=== PATIENT | male | born 1960 | race Caucasian/White ===

== ENCOUNTER → 2021-02-05 08:34 | Outpatient (CLI) | payer OTHER, SELFPAY ==
[2021-02-05 13:46] LABS: Influenza Control Positive
[2021-02-05 20:05] LABS: SARS-CoV-2 RNA PCR Positive
== END ==
PROVIDERS: PCP Internal Medicine; Visit Provider Internal Medicine
DX: R68.89 Other general symptoms and signs (principal); Z20.822 Contact with and (suspected) exposure to COVID-19
CPT/HCPCS: 87804; C9803; U0003; U0005

== ENCOUNTER 2021-02-08 07:31 | Outpatient (RCR) | payer OTHER, SELFPAY ==
[2021-02-08 10:57] VITALS: BP 118/64; PULSE 66; RESP 24; TEMP 36.3; O2SAT 86
--- NOTE | 2021-02-08 11:13 | PC.NURSE ---
Patient arrived with O2 sats at 82% on room air, and after sitting for 10 minutes we are at 88%. Call has been made to Dr Guillermo.. Patient is being transported to the ER by private car. Treatment is being canceled due to the oxygen saturation levels staying in the 80's. Report called to the ER at [facility], and patient is aware of the situation and voices understanding. JUNIOR Juarez stated he will be triaged and placed in a waiting pattern, and they will get to him when they can.
== END 2021-02-08 17:00 ==
LOC: AMCINF 07:31
PROVIDERS: PCP Internal Medicine; Visit Provider Internal Medicine Hematology & Oncology
DX: U07.1 COVID-19 (principal); I10 Essential (primary) hypertension
CPT/HCPCS: 99212; G0463

== ENCOUNTER 2021-02-08 11:38 | Inpatient (IN) | payer OTHER, SELFPAY ==
[2021-02-08] VITALS (12 sets, daily range): BP systolic 97–122; BP diastolic 62–76; PULSE 60–96; RESP 12–26; TEMP 36.2–37.2; O2SAT 78–97; BMI 34.7
--- NOTE | ~2021-02-08 | XR_ITS ---
XR chest 1V portable 02/08/2021 12:12 Indication: Covid positive. Procedure: AP portable chest Comparison: 02/03/2017 Findings: There is diffuse patchy bilateral airspace disease, compatible with pneumonia. No pleural e ffusion. Heart size normal. No pneumothorax. Impression: 1: Diffuse patchy bilateral airspace disease, compatible with pneumonia. Reviewed, dictated and finalized at location B. ECTION MANAGER Impression: 1: Diffuse patchy bilateral airspace disease, compatible with pneumonia.
--- NOTE | ~2021-02-08 | CT_ITS ---
EXAMINATION: CTA chest PE protocol EXAM DATE: 02/08/2021 13:32 INDICATION: COVID, eval for PE. Shortness of breath. TECHNIQUE: Spiral CTA of the chest (pulmonary arteries) was performed with 100 cc Omnipaque 350 intr avenous contrast injection. Images were acquired during the pulmonary arterial phase. Coronal maxi mum intensity projection 3D-reconstructions were created by the technologist on dedicated workstation . Axial, coronal and sagittal reformatted images were reviewed. The dose-length product (DLP) for t his examination was 672.33 mGy-cm. The exposure was tailored according to patient size (auto mA exp osure control), and iterative reconstruction (ASIR) was used as additional dose reduction technique. There is no prior study for comparison. FINDINGS: There are no pulmonary emboli in the 1st through 3rd order (central and interlobar) pulmon andrés arteries. Some loss of attenuation in the segmental pulmonary arteries due to respiratory motion , but no intraluminal filling defects suspected. Mildly dilated ascending aorta at 4.6 cm. No thoraci c aortic dissection. Moderate amount of bilateral peripheral groundglass airspace disease with some volume loss and regions of confluence. Appearance is consistent with subacute COVID pneumonia. There are no pleural or pericardial effusions. Tracheobronchial tree is patent. There is no mediastina l, hilar or axillary lymphadenopathy. There is no pneumothorax. Heart normal in size. There is moderate coronary arterial calcification, arterial sclerosis. There is hepatic steatosis. There is thoracic spondylosis without osteoblastic or osteolytic lesions identified. IMPRESSION: 1. Moderate amount of airspace disease consistent with subacute COVID pneumonia. 2. Mildly aneurysmal ascending aorta. 3. Hepatic steatosis. 4. No pulmonary emboli. Reviewed, dictated and finalized at location A. MENTATION IMPROVEMENT SPECIALIST IMPRESSION: 1. Moderate amount of airspace disease consistent with subacute COVID pneumoni a. 2. Mildly aneurysmal ascending aorta. 3. Hepatic steatosis. 4. No pulmonary emboli.
--- NOTE | ~2021-02-08 | XR_ITS ---
EXAMINATION: XR chest 1V portable DATE: 02/11/2021 11:03 INDICATION: Shortness of breath TECHNIQUE: frontal view of the chest was obtained. COMPARISON: Chest radiograph and CT dated 02/08/2021 FINDINGS: No significant interval change in patchy airspace opacities throughout the right lung and in the left mid to lower lung zone. No pleural effusion or pneumothorax. The cardiomediastinal silhouette is nor mal. Old healed left clavicle fracture deformity. IMPRESSION: 1. No significant change in bilateral lung disease consistent with COVID pneumonia. Reviewed, dictated and finalized at location A. ERTY AND SUPPLY OFFICER IMPRESSION: 1. No significant change in bilateral lung disease consistent with COVID pneumo wild.
--- NOTE | 2021-02-08 11:48 | ED.SOB ---
HPI - SOB/Dyspnea General Chief Complaint: Shortness of Breath/Dyspnea Stated Complaint: covid, low spo2 Time Seen by Provider: 02/08/21 11:47 Source: patient and family Mode of arrival: wheelchair Limitations: no limitations History of Present Illness HPI Narrative: Patient is a 60-year-old male with a history of diabetes, hypertension, hypothyroidism presenting for evaluation of shortness of breath. Patient known to be Covid positive, had an outpatient infusion scheduled today, when he presented to the infusion center his oxygen saturation was 79%. Patient was then transferred over to our facility for evaluation. At the time of assessment, patient is short of breath. Patient denies any chest pain. He states that he became symptomatic approximately February 03, with positive test resulting on February 06. Patient has had increasing shortness of breath since that time. He denies any leg swelling or calf pain. No significant myalgias, rhinorrhea or congestion. He does report dry cough. Patient has received 1 Moderna vaccination. Patient reports his cough and shortness of breath is worse with exertion. Improved with rest. Related Data Home Medications Medication Instructions Recorded Confirmed diphenhydramine 25 1 tablet PO QHS PRN 12/18/20 02/08/21 mg-acetaminophen 500 mg tablet omega 7-lte-yfs-fish oil 250 cap PO 12/18/20 12/18/20 mg-500 mg-1,000 mg capsule Allergies Allergy/AdvReac Type Severity Reaction Status Date / Time No Known Allergies Allergy Mild Verified 02/08/21 12:05 Review of Systems Review of Systems: CONSTITUTIONAL: Denies fever, chills, or sweats. EYES: Denies visual changes, redness, or discharge. ENT: Denies rhinorrhea, congestion, sore throat, or otalgia. CARDIOVASCULAR: Denies chest pain, palpitations, or edema. RESPIRATORY: Reports cough and shortness of breath GASTROINTESTINAL: Denies abdominal pain, nausea, vomiting, or diarrhea. GENITOURINARY: Denies dysuria or hematuria. SKIN: Denies rash or itching. MUSCULOSKELETAL: Denies back pain, joint pain, or myalgia. NEUROLOGIC: Denies headache, numbness, or weakness. [facility] Surgical History Surgical History History of right hip replacement January 2020 Family History Family History Father Family history of diabetes mellitus in first degree relative Diabetes mellitus, Onset Age: 73 Social History Social History (Updated 12/18/20 @ 14:51 by Raina Lal) Smoking status: Never smoker Second hand tobacco smoke exposure: No Alcohol intake: former Substance use: never Substance use type: does not use Exam Narrative: GENERAL: Awake, alert, conversant HEAD: Normocephalic, atraumatic. EYES: PERRLA and EOMI. ENT: Nares clear, no rhinorrhea or epistaxis. Mucous membranes moist. NECK: Supple. CHEST: Hypoxic, oxygen saturation 78% on room air, no significant tachypnea HEART: Borderline tachycardic rate, sinus rhythm ABDOMEN:Non distended, non tender EXTREMITIES: Normal range of motion. No edema. No calf tenderness, induration, edema bilaterally. SKIN: Warm, dry, no rash. NEURO:No focal deficits. Alert and oriented x3 Course Vital Signs Vital signs: Vital Signs Temperature 37.2 C 02/08/21 11:52 Pulse Rate 96 02/08/21 11:52 Respiratory Rate 17 02/08/21 11:52 Blood Pressure 98/69 L 02/08/21 11:52 Pulse Oximetry 78 L 02/08/21 11:52 Temperature 37.2 C 02/08/21 11:52 Pulse Rate 69 02/08/21 12:06 Respiratory Rate 17 02/08/21 11:52 Blood Pressure 98/69 L 02/08/21 11:52 Pulse Oximetry 94 02/08/21 12:06 MDM - SOB/Dyspnea MDM Narrative Medical decision making narrative: Patient presenting for evaluation of shortness of breath in the setting of known Covid infection. At the time of assessment, patient is hypoxic to 70% on room air. Borderline tachycardic. No significan
--- NOTE | 2021-02-08 11:49 | ECG_ITS ---
Measurements Intervals [place] Rate: 65 P: [place]: 0 QRS: -45 QRSD: 121 T: 59 QT: 431 QTc: 449 Interpretive Statements SINUS RHYTHM LEFT ANTERIOR FASCICULAR BLOCK LEFT VENTRICULAR HYPERTROPHY AND ST-T CHANGE MINIMAL Q WAVES- HIGH LATERAL LEADS BASELINE ARTIFACT- I, III, AVR, AVL, AVF, V1-V6 ABNORMAL ECG Electronically Signed On 02-08-2021 13:09:44 MUCK MINER by Óscar Carroll D.O.
[2021-02-08 12:12] LABS: Basophils Percent Auto 0.2 % (0.2-1.2); Eosinophils Percent Auto 0.1 % (0-4.4); Hematocrit 47.1 % (42.0-52.0); Hemoglobin 15.7 g/dL (14.0-18.0); Immature Granulocyte Absolute 0.08 K/mm3 (0.00-0.031); Immature Granulocyte Percent A 0.8 % (0-0.5); Lymphocytes Absolute Auto 1.21 K/mm3 (0.9-3.2); Lymphocytes Percent Auto 11.7 % (18.3-44.2); Mean Corpuscular HGB Conc 33.3 g/dl (32-36); Mean Corpuscular Hemoglobin 29.6 pg (26-34); Mean Corpuscular Volume 88.9 fl (80-100); Mean Platelet Volume 8.8 fl (7.4-10.4); Monocytes Absolute Auto 0.6 K/mm3 (0.1-0.6); Monocytes Percent Auto 6.2 % (2.6-8.5); Neutrophils Absolute Auto 8.3 K/mm3 (1.3-6.7); Platelet Count Result 353 k/mm3 (150-375); Red Cell Distribution Width 13.4 % (11.5-14.5); White Blood Count 10.3 K/mm3 (4.5-10.0)
[2021-02-08 12:23] LABS: Alanine Aminotransferase 49 U/L (4-50); Albumin Level 4.4 g/dL (3.5-5.1); Alkaline Phosphatase 81 U/L (38-126); Anion Gap 14 mmol/L (8-16); Aspartate Amino Transferase 49 U/L (17-59); Bilirubin,Total 0.8 mg/dL (0.2-1.3); Blood Urea Nitrogen 31 mg/dL (9-20); Calcium 9.1 mg/dL (8.4-10.2); Carbon Dioxide 24 mmol/L (22-30); Chloride 96 mmol/L (98-107); Estimated CRCL calculation 68 ml/min; Estimated Glomerular Filt Rate 52; Glucose 204 mg/dL (65-110); Potassium 3.3 mmol/L (3.4-5.0); Sodium 134 mmol/L (137-145)
[2021-02-08 12:28] LABS: Partial Thromboplastin Time 29.9 SECONDS (22.3-36.8); Prothrombin Time 13.4 Seconds (11.1-14.7)
[2021-02-08 12:31] LABS: D Dimer 1.51 ug/mL (<0.48)
[2021-02-08 13:04] LABS: Troponin I < 0.012 ng/mL (0.000-0.034)
[2021-02-08 13:05] LABS: Lactic Acid Reflex 2.1 mmol/L (0.7-2.1)
--- NOTE | 2021-02-08 15:01 | PC.NURSE ---
Pt. reports he has never worn O2 or needed O2 before.
[2021-02-08 15:48] LABS: Reflex Lactic Acid Yes or No Add Lactic
--- NOTE | 2021-02-08 17:19 | PM.IMHP ---
H&P: HPI History of Present Illness Date/Time: 02/08/21 17:19Thiso is a 60 year old male patient who has diabetes, hypertension and hypothyroidism. The patient came to the emergency room because he was short of breath. He did test positive for COVID on February 06. The patient tested on February 03 but did not get his results until the . The patient was supposed to receive monoclonal therapy today however his O2 saturations were found to be 97%. Instead of receiving the transfusion he was sent to the emergency room. The patient only received 1 Moderna vaccine approximately 2-3 weeks ago. Numbers tested positive for COVID as well. Patient's chest CTA was read as moderate amount of airspace disease consistent with subacute COVID pneumonia. Mildly aneurysmal ascending aorta. Hepatic steatosis. No pulmonary emboli. WBCs 10.3. D-dimer is 1.5 potassium 3.3. Creatinine is 1.4. Glucose 204 ferritin 952. The patient was started on Decadron. The patient is being admitted inpatient status on 02/08/2021. Chief Complaint: Shortness of breath Review of Systems Review of Systems: All systems reviewed & are unremarkable except as noted in HPI and below Constitutional: Constitutional: Reports as per HPI and Reports no additional constitutional complaints Eyes: Eyes: Reports as per HPI and Reports no additional eye complaints ENT: Reports system reviewed and no additional complaints, except as documented and Reports Normal hearing present Cardiovascular: Cardiovascular: Reports no additional cardiovascular complaints Respiratory: Respiratory: Reports no additional respiratory complaints and Reports no additional respiratory complaints Gastrointestinal: Gastrointestinal: Reports as per HPI and Reports no additional gastrointestinal complaints Musculoskeletal: Musculoskeletal: Reports no additional musculoskeletal complaints Integumentary/Breasts: Skin/Breast: Reports system reviewed and no additional complaints, except as docu and Reports as per HPI Neurologic: Reports system reviewed and no additional complaints, except as documented, Reports as per HPI and Reports Normal hearing present Psychiatric: Psychiatric: Reports no additional psychiatric complaints and Reports as per HPI Endocrine: Endocrine: Reports no additional endocrine complaints Hematologic/Lymphatic: Hematologic/Lymphatic: Reports no additional hematologic/lymphatic complaints Allergic/Immunologic: Allergic/Immunologic: Reports no additional allergic/immunologic complaints [facility] Past Medical History Medical History (Updated 02/08/21 @ 17:34 by Carolina Dejesus NP) Adult hypothyroidism Benign essential hypertension DM2 (diabetes mellitus, type 2) Hyperlipidemia ÁLVARO on CPAP Surgical History Surgical History (Updated 02/08/21 @ 17:42 by Carolina Dejesus NP) H/O elbow surgery History of appendectomy History of right hip replacement January 2020 Family History Family History (Updated 02/08/21 @ 17:45 by Carolina Dejesus NP) Father Family history of diabetes mellitus in first degree relative Diabetes mellitus, Onset Age: 73 Mother Diabetes mellitus Social History Social History (Updated 02/08/21 @ 17:48 by Carolina Dejesus NP) Social History: The patient lives with his . He has 2 children. He works for [employer] management. His is the durable power business attorney. The patient is a lifelong nonsmoker. He does not use any alcohol marijuana or illicit drugs. Code status full code Smoking status: Never smoker Second hand tobacco smoke exposure: No Alcohol intake: former Substance use: never Substance use type: does not use Meds Home Medications and Allergies Home Medications Medication Instructions Recorded Confirmed Type atorvastatin 20 mg tablet 20 mg PO DAILY #90 tablet 09/25/20 02/08/21 Rx fluticasone propionate 50 See Rx Instructions .ROUTE 12/01/20 02/08/21 Rx mcg/actuation nasal .COMPLEX #16 gram
[2021-02-08 17:44] LABS: Lactic Acid 1.1 mmol/L (0.7-2.1)
[2021-02-08] MEDS: POTASSIUM CHLORIDE 20 MEQ PACKET (FOR LIQUID) PO (17:49)
[2021-02-08 19:12] LABS: Alanine Aminotransferase 42 U/L (4-50); Estimated CRCL calculation 85 ml/min; Estimated Glomerular Filt Rate > 60
--- NOTE | 2021-02-08 19:16 | PC.NURSE ---
This patient, Hal Bolivar, was admitted to IMU Room 214-01. Patient/family oriented to hospital policies and general routines including ID bracelet, bed and alarms, visiting hours, pain management, procedures, bathroom and other care routines, personal items, smoking policy, room service/diet, and visiting hours. Information on how to activate the Rapid Response Team has been discussed. Patient/Family are encouraged to report perceived risks to care and to ask questions if they do not understand what they are told or what they should do.
[2021-02-08 19:17] LABS: INR 1.2; Prothrombin Time 14.8 Seconds (11.1-14.7)
[2021-02-08] MEDS: REMDESIVIR 200 MG/NS 250 ML 200 MG/250 ML BAG 250 MG IVPB (20:59)
[2021-02-08 21:29] LABS: Glucose Point of Care 301 mg/dl (65-105)
--- NOTE | 2021-02-08 23:02 | ADMGEN ---
This patient, Hal Bolivar, was admitted to IMU Room 214-01 at 1818. Patient/family oriented to hospital policies and general routines including ID bracelet, bed and alarms, visiting hours, pain management, procedures, bathroom and other care routines, personal items, smoking policy, room service/diet, and visiting hours. Information on how to activate the Rapid Response Team has been discussed. Patient/Family are encouraged to report perceived risks to care and to ask questions if they do not understand what they are told or what they should do.
[2021-02-09] VITALS (22 sets, daily range): BP systolic 109–130; BP diastolic 60–78; PULSE 49–121; RESP 18–24; TEMP 35.6–37.7; O2SAT 86–97
--- NOTE | 2021-02-09 | ECHO_ITS ---
Patient Info Name: Hal Bolivar Age: 60 years : 1960 Gender: Male Ht: 70 in Wt: 237 lbs BSA: 2.34 m2 HR: 107 bpm BP: 130 / 75 mmHg Heart Rhythm: Sinus Rhythm, Tachycardia Technical Quality: Fair Exam Date: 02/09/2021 4:15 PM Exam Location: [facility] Pulmonary Exam Room: [facility] Patient Status: Inpatient Admit Date: 02/08/2021 Staff Ordering Physician: Carson Charles MD Feltmaker: Adrienne Combs RDCS Attending Provider: Jessie Villatoro MD Exam Type: CA echo doppler color flow Study Info Indications - NEW AFIB SOB COVID Complete two-dimensional, color flow and Doppler transthoracic echocardiogram is performed. Summary 1. Complete two-dimensional, color flow and Doppler transthoracic echocardiogram is performed. 2. Essentially unremarkable echocardiogram demonstrating normal right left ventricular systolic function and no valvular disease. 3. Study requested for atrial fib, patient in sinus rhythm at the time of the exam. Left Ventricular Outflow Tract Name Value Normal LVOT 2D LVOT Diameter 2.2 cm LVOT Doppler LVOT Peak Gradient 5 mmHg LVOT Mean Gradient 3 mmHg LVOT VTI 17 cm LVOT VTI/AV VTI Ratio 0.9 LVOT Stroke Volume 67 ml LVOT CO 20.2 l/min LVOT CI 8.6 l/min/m2 Pulmonic Valve Name Value Normal PV Doppler PV Peak Gradient 3 mmHg Mitral Valve Name Value Normal MV Doppler MV Decel Griggs 823 cm/s2 MV PHT 40 ms MV Area (PHT) 5.5 cm2 4.0-5.0 MV Diastolic Function MV E Peak Velocity 113 cm/s MV A Peak Velocity 2 cm/s MV E/A 59.9 MV Decel Time 137 ms Tricuspid Valve Name Value Normal TV Regurgitation Doppler TR Peak Velocity 279 cm/s TR Peak Gradient 18 mmHg Estimated PAP/RSVP RA Pressure 10 mmHg <=5 P
--- NOTE | 2021-02-09 00:34 | PCRCNOTE ---
Window of time for administration has passed. See next scheduled administration.
[2021-02-09] MEDS: LEVOTHYROXINE SODIUM 112 MCG TABLET BY MOUTH (05:40)
[2021-02-09 05:41] LABS: Basophils Percent Auto 0.3 % (0.2-1.2); Hematocrit 43.3 % (42.0-52.0); Hemoglobin 14.6 g/dL (14.0-18.0); Immature Granulocyte Absolute 0.04 K/mm3 (0.00-0.031); Immature Granulocyte Percent A 0.6 % (0-0.5); Lymphocytes Absolute Auto 0.79 K/mm3 (0.9-3.2); Lymphocytes Percent Auto 12.6 % (18.3-44.2); Mean Corpuscular HGB Conc 33.7 g/dl (32-36); Mean Corpuscular Volume 85.9 fl (80-100); Mean Platelet Volume 8.7 fl (7.4-10.4); Monocytes Absolute Auto 0.5 K/mm3 (0.1-0.6); Monocytes Percent Auto 8.3 % (2.6-8.5); Neutrophils Absolute Auto 4.9 K/mm3 (1.3-6.7); Neutrophils Percent Auto 78.2 % (45.5-73.1); Platelet Count Result 349 k/mm3 (150-375); Red Blood Count 5.04 M/mm3 (4.6-6.20); Red Cell Distribution Width 12.9 % (11.5-14.5); White Blood Count 6.3 K/mm3 (4.5-10.0)
[2021-02-09 05:48] LABS: INR 1.1; Prothrombin Time 13.9 Seconds (11.1-14.7)
[2021-02-09 05:54] LABS: Alanine Aminotransferase 41 U/L (4-50); Albumin Level 3.9 g/dL (3.5-5.1); Alkaline Phosphatase 73 U/L (38-126); Anion Gap 14 mmol/L (8-16); Aspartate Amino Transferase 32 U/L (17-59); Bilirubin,Total 0.7 mg/dL (0.2-1.3); Blood Urea Nitrogen 32 mg/dL (9-20); Carbon Dioxide 22 mmol/L (22-30); Chloride 103 mmol/L (98-107); Estimated CRCL calculation 80 ml/min; Estimated Glomerular Filt Rate > 60; Glucose 231 mg/dL (65-110); Lipase 111 U/L (23-300); Magnesium 2.8 mg/dL (1.6-2.3); Potassium 3.8 mmol/L (3.4-5.0); Sodium 139 mmol/L (137-145)
[2021-02-09 06:03] LABS: Lactic Acid Reflex 1.4 mmol/L (0.7-2.1)
[2021-02-09 06:38] LABS: Thyroid Stimulating Hormone Reflex 0.459 uIU/mL (0.465-4.68)
[2021-02-09 08:36] LABS: Free T4 Free Thyroxine Reflex 1.38 ng/dL (0.78-2.19)
[2021-02-09 09:13] LABS: Glucose Point of Care 193 mg/dl (65-105)
[2021-02-09] MEDS: ATORVASTATIN 20 MG TABLET PO (09:20)
[2021-02-09] MEDS: ENOXAPARIN 40 MG/0.4 ML SYRINGE SUB-Q (09:21)
--- NOTE | 2021-02-09 09:36 | ECG_ITS ---
Measurements Intervals [place] Rate: 117 P: [place]: 0 QRS: -42 QRSD: 138 T: 106 QT: 363 QTc: 507 Interpretive Statements ATRIAL FIBRILLATION WITH RAPID VENTRICULAR RESPONSE LEFT ANTERIOR FASCICULAR BLOCK CANNOT RULE OUT SEPTAL INFARCT, AGE INDETERMINATE HIGH LATERAL INFARCT, AGE INDETERMINATE VOLTAGE CRITERIA FOR LVH ABNORMAL ECG Electronically Signed On 02-09-2021 10:12:02 BUTTON TUFTER by Óscar Carroll D.O.
--- NOTE | 2021-02-09 10:19 | PM.IMPN ---
Progress Note: A&P Assessment and Plan (1) Respiratory failure with hypoxia: Code(s): J96.91 - Respiratory failure, unspecified with hypoxia Status: Acute Assessment and Plan: Patient tested positive for COVID-19 which was dated on 02/05/2021. Patient was scheduled for monoclonal therapy 02/08/2021 however his oxygen level was found to be 79%. The patient was placed on 6 L per nasal cannula here at the hospital. He was started on remdesivir and Decadron day 2 Still requiring very high-flow oxygen with non-rebreather mass on top of that Will give a dose of tocilizumab today (2) COVID-19: Code(s): U07.1 - COVID-19 Status: Acute Assessment and Plan: The patient was started on remdesivir and Decadron. I also ordered an albuterol inhaler and Robitussin. Patient will be on contact and droplet isolation. CTA with no PE (3) Adult hypothyroidism: Code(s): E03.9 - Hypothyroidism, unspecified Status: Chronic Assessment and Plan: Continue with home dose of levothyroxine. TSH mildly low (4) Benign essential hypertension: Code(s): I10 - Essential (primary) hypertension Status: Chronic Assessment and Plan: Continue with home dose of diltiazem. (5) Hyperlipidemia: Code(s): E78.5 - Hyperlipidemia, unspecified Status: Chronic Assessment and Plan: Continue with atorvastatin and monitor liver function (6) DM2 (diabetes mellitus, type 2): Code(s): E11.9 - Type 2 diabetes mellitus without complications Status: Chronic Assessment and Plan: Accu-Cheks AC and HS with sliding scale insulin. (7) ÁLVARO on CPAP: Code(s): G47.33 - Obstructive sleep apnea (adult) (pediatric); Z99.89 - Dependence on other enabling machines and devices Status: Chronic Assessment and Plan: Patient uses a CPAP at home however the patient is positive for COVID so I am not sure if he will be able to wear CPAP machine while he is under isolation (8) Atrial fibrillation with RVR: Code(s): I48.91 - Unspecified atrial fibrillation Status: Acute Assessment and Plan: Likely induced by hypoxia TSH mildly low will do full dose Lovenox IV metoprolol p.r.n. Will start Cardizem drip Lovenox full dose for stroke prophylaxis Subjective Date/time seen: 02/09/21 10:19 Interval history: He flipped into AFib with RVR this morning. EKG reviewed. He feels breathing is better, no chest pain Review of Systems Review of Systems: All systems reviewed & are unremarkable except as noted in HPI and below Exam Narrative: GENERAL: The patient is well developed, not in acute distress HEENT: Nonicteric sclerae, PERRLA, EOMI. Oropharynx clear. Moist mucous membranes. Conjunctivae appear well perfused. CHEST: Chest wall is nontender. HEART: Tachycardic with atrial fibrillation, without murmur, rubs, or gallops LUNGS: Coarse breath sounds bilaterally. Crackles at the bases, no respiratory distress ABDOMEN: Soft, positive bowel sounds, non-tender, no organomegaly. SKIN: No rash, no excessive bruising, petechiae, or purpura. NEUROLOGIC: Cranial nerves II-XII intact, alert and oriented x 3, no gross motor deficits EXTREMITIES: no edema, cyanosis or clubbing Extrem: General: normal exam except as noted and no edema Objective Data Vital Signs Vital Signs: Vital Signs - 24 hr 02/08/21 11:52 02/08/21 12:06 02/08/21 12:30 Temperature 98.9 F Pulse Rate 96 69 71 Respiratory Rate 17 26 H Blood Pressure 98/69 L 102/63 Pulse Oximetry 78 L 94 96 02/08/21 13:30 02/08/21 14:37 02/08/21 16:08 Temperature Pulse Rate 72 69 65 Respiratory Rate 24 H 12 14 Blood Pressure 109/64 108/64 122/76 Pulse Oximetry 93 96 96 02/08/21 17:14 02/08/21 18:24 02/08/21 18:59 Temperature 98.3 F Pulse Rate 69 67 60 Respiratory Rate 14 17 24 H Blood Pressure 97/65 L 108/66 110/62 Pulse Oximetry 97 94 92 02/08/21 19:54 02/08/21 20:00 02/08/21
[2021-02-09] MEDS: METOPROLOL TARTRATE INJ 5 MG/5 ML VIAL IV PUSH (10:26)
[2021-02-09 10:49] LABS: Total Triiodothyronine (T3) 1.01 NG/ML (0.97-1.69)
[2021-02-09] MEDS: ALBUTEROL SULFATE (*SP) AEROSOL 1 PUFF 2 PUFF INHALATION (10:50)
[2021-02-09 10:59] LABS: CRP 6.8 mg/dL (<1.0); Lactate Dehydrogenase 598 U/L (313-618)
[2021-02-09] MEDS: ENOXAPARIN 60 MG/0.6 ML SYRINGE SUB-Q (11:13)
[2021-02-09] MEDS: FLUTICASONE PROPIONATE 0.05% NA SPR 16 GM BTL (*BKC) 2 SPRAY NASAL (11:13)
[2021-02-09] MEDS: dilTIAZem HCL CD 180 MG CAP.ER.24H 360 MG PO (11:13)
[2021-02-09 11:35] LABS: Glucose Point of Care 254 mg/dl (65-105)
[2021-02-09] MEDS: INSULIN ASPART (*BKC) 100 UNITS/ML SUB-Q ×2 (13:17→16:57)
[2021-02-09] MEDS: TOCILIZUMAB 800 MG in SODIUM CHLORIDE 0.9% IV 60 ML 100 MG IVPB (15:52)
[2021-02-09 16:58] LABS: Glucose Point of Care 290 mg/dl (65-105)
[2021-02-09] MEDS: ENOXAPARIN 100 MG/ML SYRINGE SUB-Q (21:49)
[2021-02-09] MEDS: REMDESIVIR 100 MG/NS 250 ML 100 MG/250 ML BAG 250 MG IVPB (21:50)
[2021-02-09 22:24] LABS: Glucose Point of Care 322 mg/dl (65-105)
[2021-02-09] MEDS: INSULIN ASPART (*BKC) 100 UNITS/ML 8 UNITS SUB-Q (22:50)
[2021-02-10] VITALS (18 sets, daily range): BP systolic 98–118; BP diastolic 61–77; PULSE 74–150; RESP 18–24; TEMP 36.2–36.9; O2SAT 92–100
--- NOTE | 2021-02-10 01:57 | PCRCNOTE ---
Window of time for administration has passed. See next scheduled administration.
[2021-02-10] MEDS: ALBUTEROL SULFATE (*SP) AEROSOL 1 PUFF 2 PUFF INHALATION ×4 (04:33→21:09)
[2021-02-10] MEDS: LEVOTHYROXINE SODIUM 112 MCG TABLET BY MOUTH (06:51)
[2021-02-10 08:11] LABS: Basophils Percent Auto 0.1 % (0.2-1.2); Hematocrit 45.2 % (42.0-52.0); Hemoglobin 15.1 g/dL (14.0-18.0); Immature Granulocyte Absolute 0.05 K/mm3 (0.00-0.031); Immature Granulocyte Percent A 0.6 % (0-0.5); Lymphocytes Absolute Auto 1.05 K/mm3 (0.9-3.2); Lymphocytes Percent Auto 12.4 % (18.3-44.2); Mean Corpuscular HGB Conc 33.4 g/dl (32-36); Mean Corpuscular Hemoglobin 29.5 pg (26-34); Mean Corpuscular Volume 88.5 fl (80-100); Mean Platelet Volume 8.7 fl (7.4-10.4); Monocytes Absolute Auto 0.6 K/mm3 (0.1-0.6); Monocytes Percent Auto 7.6 % (2.6-8.5); Neutrophils Absolute Auto 6.7 K/mm3 (1.3-6.7); Neutrophils Percent Auto 79.3 % (45.5-73.1); Platelet Count Result 365 k/mm3 (150-375); Red Blood Count 5.11 M/mm3 (4.6-6.20); Red Cell Distribution Width 12.7 % (11.5-14.5); White Blood Count 8.5 K/mm3 (4.5-10.0)
[2021-02-10] MEDS: ATORVASTATIN 20 MG TABLET PO (08:19)
[2021-02-10] MEDS: ENOXAPARIN 100 MG/ML SYRINGE SUB-Q ×2 (08:19→20:59)
[2021-02-10 08:29] LABS: Alanine Aminotransferase 43 U/L (4-50); Albumin Level 3.8 g/dL (3.5-5.1); Alkaline Phosphatase 71 U/L (38-126); Anion Gap 9 mmol/L (8-16); Aspartate Amino Transferase 40 U/L (17-59); Bilirubin,Total 0.6 mg/dL (0.2-1.3); Blood Urea Nitrogen 33 mg/dL (9-20); CRP 3.1 mg/dL (<1.0); Calcium 8.8 mg/dL (8.4-10.2); Carbon Dioxide 22 mmol/L (22-30); Chloride 105 mmol/L (98-107); Estimated CRCL calculation 97 ml/min; Estimated Glomerular Filt Rate > 60; Glucose 248 mg/dL (65-110); Lactate Dehydrogenase 547 U/L (313-618); Sodium 136 mmol/L (137-145)
[2021-02-10 08:36] LABS: INR 1.1; Prothrombin Time 14.2 Seconds (11.1-14.7)
[2021-02-10 08:39] LABS: D Dimer 1.52 ug/mL (<0.48)
[2021-02-10 08:59] LABS: Glucose Point of Care 236 mg/dl (65-105)
[2021-02-10] MEDS: INSULIN ASPART (*BKC) 100 UNITS/ML SUB-Q ×3 (09:31→17:09)
[2021-02-10] MEDS: FLUTICASONE PROPIONATE 0.05% NA SPR 16 GM BTL (*BKC) 2 SPRAY NASAL (09:33)
[2021-02-10 13:15] LABS: Glucose Point of Care 298 mg/dl (65-105)
[2021-02-10] MEDS: INSULIN GLARGINE (*BKC) 100 UNITS/ML 16 UNITS SUB-Q ×2 (15:43→20:59)
[2021-02-10 16:54] LABS: Glucose Point of Care 369 mg/dl (65-105)
--- NOTE | 2021-02-10 17:37 | ECG_ITS ---
Measurements Intervals [place] Rate: 113 P: [place]: 0 QRS: -48 QRSD: 132 T: 128 QT: 326 QTc: 449 Interpretive Statements ATRIAL FLUTTER/TACHYCARDIA WITH RAPID VENTRICULAR RESPONSE INTRAVENTRICULAR CONDUCTION DELAY LEFT VENTRICULAR HYPERTROPHY AND ST-T CHANGE CONSIDER LATERAL INFARCT, AGE INDETERMINATE BASELINE ARTIFACT- II, III, AVR, AVL, AVF ABNORMAL ECG Electronically Signed On 02-11-2021 7:01:22 FITNESS STUDIES TEACHER by Óscar Carroll D.O.
--- NOTE | 2021-02-10 17:53 | PM.IMPN ---
Progress Note: A&P Assessment and Plan (1) Respiratory failure with hypoxia: Code(s): J96.91 - Respiratory failure, unspecified with hypoxia Status: Acute Assessment and Plan: Patient tested positive for COVID-19 which was dated on 02/05/2021. Patient was scheduled for monoclonal therapy 02/08/2021 however his oxygen level was found to be 79%. The patient was placed on 6 L per nasal cannula here at the hospital. He was started on remdesivir and Decadron day 3 Still requiring very high-flow oxygen with non-rebreather mass on top of that Received tocilizumab 02/09/2021 CRP lower today continue to monitor (2) COVID-19: Code(s): U07.1 - COVID-19 Status: Acute Assessment and Plan: The patient was started on remdesivir and Decadron. I also ordered an albuterol inhaler and Robitussin. Patient will be on contact and droplet isolation. CTA with no PE (3) Adult hypothyroidism: Code(s): E03.9 - Hypothyroidism, unspecified Status: Chronic Assessment and Plan: Continue with home dose of levothyroxine. TSH mildly low (4) Benign essential hypertension: Code(s): I10 - Essential (primary) hypertension Status: Chronic Assessment and Plan: Continue with home dose of diltiazem. (5) Hyperlipidemia: Code(s): E78.5 - Hyperlipidemia, unspecified Status: Chronic Assessment and Plan: Continue with atorvastatin and monitor liver function (6) DM2 (diabetes mellitus, type 2): Code(s): E11.9 - Type 2 diabetes mellitus without complications Status: Chronic Assessment and Plan: Accu-Cheks AC and HS with sliding scale insulin. Add Lantus 16 units at bedtime today for hyperglycemia (7) ÁLVARO on CPAP: Code(s): G47.33 - Obstructive sleep apnea (adult) (pediatric); Z99.89 - Dependence on other enabling machines and devices Status: Chronic Assessment and Plan: Patient uses a CPAP at home however the patient is positive for COVID continue CPAP at night (8) Atrial fibrillation with RVR: Code(s): I48.91 - Unspecified atrial fibrillation Status: Acute Assessment and Plan: Likely induced by hypoxia TSH mildly low will do full dose Lovenox IV metoprolol p.r.n. Will start Cardizem drip titrate Cardizem drip blood pressure does not tolerate was switched to amiodarone Lovenox full dose for stroke prophylaxis Subjective Date/time seen: 02/10/21 17:53 Interval history: Atrial fibrillation continues. Rate control overnight got up again this afternoon. He remains on Cardizem drip. States breathing is slightly better than yesterday denies any chest pain no leg swelling Review of Systems Review of Systems: All systems reviewed & are unremarkable except as noted in HPI and below Exam Narrative: GENERAL: The patient is well developed, not in acute distress HEENT: Nonicteric sclerae, PERRLA, EOMI. Oropharynx clear. Moist mucous membranes. Conjunctivae appear well perfused. CHEST: Chest wall is nontender. HEART: Tachycardic with atrial fibrillation, without murmur, rubs, or gallops LUNGS: Coarse breath sounds bilaterally. No added sounds, no respiratory distress ABDOMEN: Soft, positive bowel sounds, non-tender, no organomegaly. SKIN: No rash, no excessive bruising, petechiae, or purpura. NEUROLOGIC: Cranial nerves II-XII intact, alert and oriented x 3, no gross motor deficits EXTREMITIES: no edema, cyanosis or clubbing Objective Data Vital Signs Vital Signs: Vital Signs - 24 hr 02/09/21 18:00 02/09/21 19:49 02/09/21 20:00 Temperature 99.3 F Pulse Rate 97 94 90 Respiratory Rate 20 Blood Pressure 116/78 Pulse Oximetry 97 02/09/21 22:00 02/09/21 23:03 02/10/21 00:00 Temperature 97.1 F L Pulse Rate 73 98 79 Respiratory Rate 20 Blood Pressure 112/77 Pulse Oximetry 97 100 02/10/21 02:00 02/10/21 04:00 02/10/21 06:00 Temperature 97.1 F L Pulse Rate 74 103 H 82 Respiratory Rate
[2021-02-10 20:52] LABS: Glucose Point of Care 320 mg/dl (65-105)
[2021-02-10] MEDS: REMDESIVIR 100 MG/NS 250 ML 100 MG/250 ML BAG 250 MG IVPB (21:00)
[2021-02-11] VITALS (20 sets, daily range): BP systolic 105–128; BP diastolic 64–78; PULSE 92–146; RESP 20–22; TEMP 36.1–36.6; O2SAT 90–99
[2021-02-11] MEDS: ALBUTEROL SULFATE (*SP) AEROSOL 1 PUFF 2 PUFF INHALATION ×3 (02:23→20:31)
[2021-02-11] MEDS: METOPROLOL TARTRATE INJ 5 MG/5 ML VIAL IV PUSH (02:27)
[2021-02-11] MEDS: LEVOTHYROXINE SODIUM 112 MCG TABLET BY MOUTH (05:59)
[2021-02-11 07:09] LABS: Basophils Percent Auto 0.2 % (0.2-1.2); Hematocrit 43.4 % (42.0-52.0); Hemoglobin 14.8 g/dL (14.0-18.0); Immature Granulocyte Absolute 0.07 K/mm3 (0.00-0.031); Immature Granulocyte Percent A 0.7 % (0-0.5); Lymphocytes Absolute Auto 1.16 K/mm3 (0.9-3.2); Lymphocytes Percent Auto 12.3 % (18.3-44.2); Mean Corpuscular HGB Conc 34.1 g/dl (32-36); Mean Corpuscular Hemoglobin 29.8 pg (26-34); Mean Corpuscular Volume 87.5 fl (80-100); Mean Platelet Volume 8.7 fl (7.4-10.4); Monocytes Absolute Auto 0.8 K/mm3 (0.1-0.6); Monocytes Percent Auto 8.2 % (2.6-8.5); Neutrophils Absolute Auto 7.4 K/mm3 (1.3-6.7); Neutrophils Percent Auto 78.6 % (45.5-73.1); Platelet Count Result 379 k/mm3 (150-375); Red Blood Count 4.96 M/mm3 (4.6-6.20); Red Cell Distribution Width 12.6 % (11.5-14.5); White Blood Count 9.4 K/mm3 (4.5-10.0)
[2021-02-11 07:20] LABS: INR 1.2; Prothrombin Time 14.7 Seconds (11.1-14.7)
[2021-02-11 07:22] LABS: Alanine Aminotransferase 48 U/L (4-50); Albumin Level 3.4 g/dL (3.5-5.1); Alkaline Phosphatase 68 U/L (38-126); Anion Gap 8 mmol/L (8-16); Aspartate Amino Transferase 32 U/L (17-59); Bilirubin,Total 0.5 mg/dL (0.2-1.3); Blood Urea Nitrogen 31 mg/dL (9-20); CRP 1.8 mg/dL (<1.0); Calcium 8.7 mg/dL (8.4-10.2); Carbon Dioxide 24 mmol/L (22-30); Chloride 107 mmol/L (98-107); Estimated CRCL calculation 88 ml/min; Estimated Glomerular Filt Rate > 60; Glucose 266 mg/dL (65-110); Magnesium 2.5 mg/dL (1.6-2.3); Potassium 4.3 mmol/L (3.4-5.0); Sodium 139 mmol/L (137-145)
[2021-02-11] MEDS: ENOXAPARIN 100 MG/ML SYRINGE SUB-Q ×2 (09:18→20:33)
[2021-02-11] MEDS: ATORVASTATIN 20 MG TABLET PO (09:18)
[2021-02-11] MEDS: FLUTICASONE PROPIONATE 0.05% NA SPR 16 GM BTL (*BKC) 2 SPRAY NASAL (09:19)
[2021-02-11] MEDS: INSULIN ASPART (*BKC) 100 UNITS/ML SUB-Q ×3 (09:20→18:22)
[2021-02-11] MEDS: METOPROLOL TARTRATE 25 MG TABLET PO ×2 (10:07→20:33)
--- NOTE | 2021-02-11 10:40 | PM.IMPN ---
Progress Note: A&P Assessment and Plan (1) Respiratory failure with hypoxia: Code(s): J96.91 - Respiratory failure, unspecified with hypoxia Status: Acute Assessment and Plan: Patient tested positive for COVID-19 which was dated on 02/05/2021. Patient was scheduled for monoclonal therapy 02/08/2021 however his oxygen level was found to be 79%. The patient was placed on 6 L per nasal cannula here at the hospital. He was started on remdesivir and Decadron day 4 Still requiring very high-flow oxygen with non-rebreather mass on top of that Received tocilizumab 02/09/2021 CRP continues to improve (2) COVID-19: Code(s): U07.1 - COVID-19 Status: Acute Assessment and Plan: The patient was started on remdesivir and Decadron. I also ordered an albuterol inhaler and Robitussin. Patient will be on contact and droplet isolation. CTA with no PE (3) Adult hypothyroidism: Code(s): E03.9 - Hypothyroidism, unspecified Status: Chronic Assessment and Plan: Continue with home dose of levothyroxine. TSH mildly low (4) Benign essential hypertension: Code(s): I10 - Essential (primary) hypertension Status: Chronic Assessment and Plan: Continue with home dose of diltiazem. (5) Hyperlipidemia: Code(s): E78.5 - Hyperlipidemia, unspecified Status: Chronic Assessment and Plan: Continue with atorvastatin and monitor liver function (6) DM2 (diabetes mellitus, type 2): Code(s): E11.9 - Type 2 diabetes mellitus without complications Status: Chronic Assessment and Plan: Accu-Cheks AC and HS with sliding scale insulin. Add Lantus 16 units at bedtime today for hyperglycemia (7) ÁLVARO on CPAP: Code(s): G47.33 - Obstructive sleep apnea (adult) (pediatric); Z99.89 - Dependence on other enabling machines and devices Status: Chronic Assessment and Plan: Patient uses a CPAP at home however the patient is positive for COVID continue CPAP at night (8) Atrial fibrillation with RVR: Code(s): I48.91 - Unspecified atrial fibrillation Status: Acute Assessment and Plan: Likely induced by hypoxia TSH mildly low will do full dose Lovenox IV metoprolol p.r.n. Will start Cardizem drip titrate Cardizem drip blood pressure does not tolerate was switched to amiodarone Lovenox full dose for stroke prophylaxis Start metoprolol 25 mg and she is heart rate Ms. start amiodarone blood pressure does not tolerate Factory Manager dose of Lasix 40 mg IV today and recheck a chest x-ray Subjective Date/time seen: 02/11/21 10:40 Interval history: Atrial fibrillation continues. Rate is still 110s to 120s mostly at rest goes up to 150s with exertion. Remains on Cardizem drip no chest pain. States he feels better, dry cough present Review of Systems Review of Systems: All systems reviewed & are unremarkable except as noted in HPI and below Exam Narrative: GENERAL: The patient is well developed, not in acute distress HEENT: Nonicteric sclerae, PERRLA, EOMI. Oropharynx clear. Moist mucous membranes. Conjunctivae appear well perfused. CHEST: Chest wall is nontender. HEART: Tachycardic with atrial fibrillation, without murmur, rubs, or gallops LUNGS: Coarse breath sounds bilaterally. No added sounds, no respiratory distress ABDOMEN: Soft, positive bowel sounds, non-tender, no organomegaly. SKIN: No rash, no excessive bruising, petechiae, or purpura. NEUROLOGIC: Cranial nerves II-XII intact, alert and oriented x 3, no gross motor deficits EXTREMITIES: no edema, cyanosis or clubbing Objective Data Vital Signs Vital Signs: Vital Signs - 24 hr 02/10/21 12:00 02/10/21 13:29 02/10/21 14:00 Temperature 98.5 F Pulse Rate 83 83 99 Respiratory Rate 24 H 24 H Blood Pressure 98/66 L Pulse Oximetry 96 96 02/10/21 15:46 02/10/21 16:00 02/10/21 17:10 Temperature 98.4 F Pulse Rate 116 H 111 H 150 H Respiratory Rate 24 H 22 H Blood Pr
[2021-02-11] MEDS: FUROSEMIDE INJ 40 MG/4 ML VIAL IV PUSH (11:57)
[2021-02-11 12:49] LABS: Glucose Point of Care 265 mg/dl (65-105)
[2021-02-11 16:43] LABS: Glucose Point of Care 385 mg/dl (65-105)
[2021-02-11 20:31] LABS: Glucose Point of Care 368 mg/dl (65-105)
[2021-02-11] MEDS: INSULIN GLARGINE (*BKC) 100 UNITS/ML 20 UNITS SUB-Q (20:32)
[2021-02-11] MEDS: REMDESIVIR 100 MG/NS 250 ML 100 MG/250 ML BAG 250 MG IVPB (20:32)
[2021-02-11] MEDS: INSULIN ASPART (*BKC) 100 UNITS/ML 8 UNITS SUB-Q (21:36)
[2021-02-12] VITALS (23 sets, daily range): BP systolic 105–130; BP diastolic 66–76; PULSE 82–119; RESP 20–24; TEMP 36.3–36.9; O2SAT 92–98
[2021-02-12 00:09] LABS: Glucose Point of Care 304 mg/dl (65-105)
[2021-02-12 06:04] LABS: Basophils Percent Auto 0.3 % (0.2-1.2); Eosinophils Percent Auto 0.1 % (0-4.4); Hemoglobin 15.3 g/dL (14.0-18.0); Lymphocytes Absolute Auto 1.45 K/mm3 (0.9-3.2); Lymphocytes Percent Auto 13.8 % (18.3-44.2); Mean Corpuscular Hemoglobin 29.2 pg (26-34); Mean Corpuscular Volume 85.9 fl (80-100); Mean Platelet Volume 8.5 fl (7.4-10.4); Monocytes Absolute Auto 0.8 K/mm3 (0.1-0.6); Monocytes Percent Auto 7.7 % (2.6-8.5); Neutrophils Absolute Auto 8.1 K/mm3 (1.3-6.7); Neutrophils Percent Auto 77.1 % (45.5-73.1); Platelet Count Result 432 k/mm3 (150-375); Red Blood Count 5.24 M/mm3 (4.6-6.20); Red Cell Distribution Width 12.3 % (11.5-14.5); White Blood Count 10.5 K/mm3 (4.5-10.0)
[2021-02-12 06:15] LABS: INR 1.1; Prothrombin Time 14.1 Seconds (11.1-14.7)
[2021-02-12 06:16] LABS: Alanine Aminotransferase 66 U/L (4-50); Anion Gap 9 mmol/L (8-16); Blood Urea Nitrogen 34 mg/dL (9-20); CRP 1.1 mg/dL (<1.0); Calcium 8.7 mg/dL (8.4-10.2); Carbon Dioxide 24 mmol/L (22-30); Chloride 103 mmol/L (98-107); Estimated CRCL calculation 88 ml/min; Estimated Glomerular Filt Rate > 60; Glucose 245 mg/dL (65-110); Magnesium 2.3 mg/dL (1.6-2.3); Potassium 4.1 mmol/L (3.4-5.0); Sodium 136 mmol/L (137-145)
[2021-02-12] MEDS: LEVOTHYROXINE SODIUM 112 MCG TABLET BY MOUTH (06:32)
--- NOTE | 2021-02-12 07:16 | PCRCNOTE ---
Window of time for administration has passed. See next scheduled administration.
[2021-02-12 08:48] LABS: Glucose Point of Care 191 mg/dl (65-105)
[2021-02-12] MEDS: ALBUTEROL SULFATE (*SP) AEROSOL 1 PUFF 2 PUFF INHALATION ×3 (08:56→20:48)
[2021-02-12] MEDS: INSULIN ASPART (*BKC) 100 UNITS/ML SUB-Q ×4 (08:57→17:32)
[2021-02-12] MEDS: ENOXAPARIN 100 MG/ML SYRINGE SUB-Q ×2 (08:58→21:43)
[2021-02-12] MEDS: ATORVASTATIN 20 MG TABLET PO (08:58)
[2021-02-12] MEDS: FLUTICASONE PROPIONATE 0.05% NA SPR 16 GM BTL (*BKC) 2 SPRAY NASAL (08:59)
[2021-02-12] MEDS: METOPROLOL TARTRATE 25 MG TABLET PO ×2 (08:59→21:43)
[2021-02-12] MEDS: dilTIAZem HCL CD 180 MG CAP.ER.24H 360 MG PO (09:46)
[2021-02-12 12:46] LABS: Glucose Point of Care 295 mg/dl (65-105)
--- NOTE | 2021-02-12 13:39 | PM.IMPN ---
Progress Note: A&P Assessment and Plan (1) Respiratory failure with hypoxia: Code(s): J96.91 - Respiratory failure, unspecified with hypoxia Status: Acute Assessment and Plan: Patient tested positive for COVID-19 which was dated on 02/05/2021. Patient was scheduled for monoclonal therapy 02/08/2021 however his oxygen level was found to be 79%. The patient was placed on 6 L per nasal cannula here at the hospital. He was started on remdesivir and Decadron day 5. Will continue remdesivir for 5 more days for total of 10 days. Decadron to continue for total 10 days Still requiring very high-flow oxygen with non-rebreather mass on top of that Received tocilizumab 02/09/2021 CRP continues to improve and today is normal CRP level Oxygen requirement continues to improve slowly, lowered it down to 5 and stayed around 91 92% will continue to titrate as tolerated Chest x-ray with stable opacities noted compared with previous chest x-ray Will repeat a dose of Lasix today (2) COVID-19: Code(s): U07.1 - COVID-19 Status: Acute Assessment and Plan: The patient was started on remdesivir and Decadron. I also ordered an albuterol inhaler and Robitussin. Patient will be on contact and droplet isolation. CTA with no PE (3) Adult hypothyroidism: Code(s): E03.9 - Hypothyroidism, unspecified Status: Chronic Assessment and Plan: Continue with home dose of levothyroxine. TSH mildly low (4) Benign essential hypertension: Code(s): I10 - Essential (primary) hypertension Status: Chronic Assessment and Plan: Continue with home dose of diltiazem. (5) Hyperlipidemia: Code(s): E78.5 - Hyperlipidemia, unspecified Status: Chronic Assessment and Plan: Continue with atorvastatin and monitor liver function (6) DM2 (diabetes mellitus, type 2): Code(s): E11.9 - Type 2 diabetes mellitus without complications Status: Chronic Assessment and Plan: Accu-Cheks AC and HS with sliding scale insulin. Add Lantus 16 units at bedtime today for hyperglycemia Lantus does adjusted for hyperglycemia Add prandial insulin coverage today (7) ÁLVARO on CPAP: Code(s): G47.33 - Obstructive sleep apnea (adult) (pediatric); Z99.89 - Dependence on other enabling machines and devices Status: Chronic Assessment and Plan: Patient uses a CPAP at home however the patient is positive for COVID continue CPAP at night (8) Atrial fibrillation with RVR: Code(s): I48.91 - Unspecified atrial fibrillation Status: Acute Assessment and Plan: Likely induced by hypoxia TSH mildly low will do full dose Lovenox IV metoprolol p.r.n. Started on Cardizem drip titrate Cardizem drip blood pressure does not tolerate was switched to amiodarone Lovenox full dose for stroke prophylaxis Started on metoprolol 25 mg and she is heart rate 02/10/2021 Will stop his Cardizem drip restart his home Cardizem oral does 360 mg from this morning. Atrial fibrillation is better controlled now. Subjective Date/time seen: 02/12/21 13:39 Interval history: No overnight events. Heart rate is better controlled. Remains on atrial fibrillation. Mild dry cough. Oxygen requirement down to 10 L and continues to slowly improve. Denies any leg swelling. No chest pain Review of Systems Review of Systems: All systems reviewed & are unremarkable except as noted in HPI and below Exam Narrative: GENERAL: The patient is well developed, not in acute distress HEENT: Nonicteric sclerae, PERRLA, EOMI. Oropharynx clear. Moist mucous membranes. Conjunctivae appear well perfused. CHEST: Chest wall is nontender. HEART: Rate controlled atrial fibrillation, without murmur, rubs, or gallops LUNGS: Coarse breath sounds bilaterally. No added sounds, no respiratory distress ABDOMEN: Soft, positive bowel sounds, non-tender, no organomegaly. SKIN: No rash, no excessive bruising, petechiae, or pur
[2021-02-12] MEDS: FUROSEMIDE INJ 40 MG/4 ML VIAL 20 MG IV PUSH (14:38)
[2021-02-12] MEDS: polyethylene glycoL 3350 17 GM POWD.PACK PO (14:38)
[2021-02-12] MEDS: INSULIN ASPART (*BKC) 100 UNITS/ML 10 UNITS SUB-Q (17:33)
[2021-02-12 18:06] LABS: Glucose Point of Care 419 mg/dl (65-105)
[2021-02-12 21:07] LABS: Glucose Point of Care 330 mg/dl (65-105)
[2021-02-12] MEDS: REMDESIVIR 100 MG/NS 250 ML 100 MG/250 ML BAG 250 MG IVPB (21:42)
[2021-02-12] MEDS: DOCUSATE SODIUM 100 MG CAPSULE PO (21:43)
[2021-02-12] MEDS: INSULIN GLARGINE (*BKC) 100 UNITS/ML 28 UNITS SUB-Q (21:44)
[2021-02-13] VITALS (28 sets, daily range): BP systolic 97–122; BP diastolic 68–84; PULSE 79–160; RESP 20–22; TEMP 35.9–36.6; O2SAT 92–98
[2021-02-13] MEDS: ALBUTEROL SULFATE (*SP) AEROSOL 1 PUFF 2 PUFF INHALATION ×4 (02:24→21:44)
[2021-02-13] MEDS: LEVOTHYROXINE SODIUM 112 MCG TABLET BY MOUTH (05:38)
[2021-02-13 06:13] LABS: Basophils Percent Auto 0.2 % (0.2-1.2); Hematocrit 44.8 % (42.0-52.0); Hemoglobin 15.4 g/dL (14.0-18.0); Immature Granulocyte Percent A 0.8 % (0-0.5); Lymphocytes Absolute Auto 1.65 K/mm3 (0.9-3.2); Mean Corpuscular HGB Conc 34.4 g/dl (32-36); Mean Corpuscular Hemoglobin 29.7 pg (26-34); Mean Corpuscular Volume 86.5 fl (80-100); Mean Platelet Volume 8.7 fl (7.4-10.4); Monocytes Absolute Auto 0.9 K/mm3 (0.1-0.6); Monocytes Percent Auto 6.8 % (2.6-8.5); Neutrophils Absolute Auto 10.1 K/mm3 (1.3-6.7); Neutrophils Percent Auto 79.2 % (45.5-73.1); Platelet Count Result 482 k/mm3 (150-375); Red Blood Count 5.18 M/mm3 (4.6-6.20); Red Cell Distribution Width 12.5 % (11.5-14.5); White Blood Count 12.7 K/mm3 (4.5-10.0)
[2021-02-13 06:27] LABS: Anion Gap 7 mmol/L (8-16); Blood Urea Nitrogen 33 mg/dL (9-20); Calcium 8.5 mg/dL (8.4-10.2); Carbon Dioxide 22 mmol/L (22-30); Chloride 104 mmol/L (98-107); Estimated CRCL calculation 80 ml/min; Estimated Glomerular Filt Rate > 60; Glucose 280 mg/dL (65-110); Potassium 4.2 mmol/L (3.4-5.0); Sodium 133 mmol/L (137-145)
[2021-02-13] MEDS: METOPROLOL TARTRATE INJ 5 MG/5 ML VIAL IV PUSH ×2 (08:06→09:45)
[2021-02-13 08:37] LABS: Glucose Point of Care 240 mg/dl (65-105)
[2021-02-13] MEDS: dilTIAZem HCL CD 180 MG CAP.ER.24H 360 MG PO (08:54)
[2021-02-13] MEDS: polyethylene glycoL 3350 17 GM POWD.PACK PO (08:54)
[2021-02-13] MEDS: INSULIN ASPART (*BKC) 100 UNITS/ML SUB-Q ×3 (08:55→16:55)
[2021-02-13] MEDS: METOPROLOL TARTRATE 25 MG TABLET PO ×3 (08:55→21:21)
[2021-02-13] MEDS: ATORVASTATIN 20 MG TABLET PO (08:55)
[2021-02-13] MEDS: DOCUSATE SODIUM 100 MG CAPSULE PO ×2 (08:55→20:49)
[2021-02-13] MEDS: INSULIN ASPART (*BKC) 100 UNITS/ML 10 UNITS SUB-Q ×3 (08:55→16:55)
[2021-02-13] MEDS: FLUTICASONE PROPIONATE 0.05% NA SPR 16 GM BTL (*BKC) 2 SPRAY NASAL (08:56)
[2021-02-13] MEDS: ENOXAPARIN 100 MG/ML SYRINGE SUB-Q ×2 (08:56→20:49)
[2021-02-13 09:24] LABS: INR 1.1; Prothrombin Time 14.5 Seconds (11.1-14.7)
[2021-02-13 09:27] LABS: Alanine Aminotransferase 83 U/L (4-50)
--- NOTE | 2021-02-13 10:32 | PM.CNCAR ---
Assessment and Plan Assessment and plan (1) Atrial fibrillation with RVR: Code(s): I48.91 - Unspecified atrial fibrillation Status: Acute Assessment and Plan: 60-year-old male with hypertension, type 2 diabetes mellitus, hypothyroidism on thyroxine replacement, ÁLVARO. Patient admitted to the hospital with COVID-19 pneumonia. During hospitalization, patient was found to be in atrial fibrillation with RVR. On telemetry, he is currently in AFib with RVR with heart rates in 120s to 130s. Blood pressures are low normal with episodes of hypotension. -due to AFib with RVR and relatively low blood pressures, will initiate on amiodarone IV. May hold diltiazem for now, continue metoprolol tartrate with holding parameters. -continue anticoagulation with low-molecular weight heparin. -echocardiogram performed during this hospitalization is unremarkable. -hopefully, with resolution of COVID-19 pneumonia, patient may revert back to sinus rhythm. (2) Pneumonia due to 2019 novel coronavirus: Code(s): U07.1 - COVID-19; J12.82 - Pneumonia due to coronavirus disease 2019 Status: Acute Assessment and Plan: Patient is on supplemental oxygen, has received remdesivir, and steroids. Management as per primary team. History of Present Illness History of Present Illness Consult date/time: 02/13/21 10:32 DATE OF CONSULT: 02/13/2021 REASON FOR CONSULT: AFib/flutter with RVR REQUESTING PHYSICIAN:Cindy Delcid MD CHIEF COMPLAINT: Shortness of breath HPI: 60-year-old male with hypertension, type 2 diabetes mellitus, hypothyroidism on thyroxine replacement, ÁLVARO Patient presented to [facility] Room on 02/08/2021 with complaints of shortness of breath. Apparently, patient was found to be COVID positive on 02/06/2021. He was scheduled to receive monoclonal antibody as an outpatient on 02/08/2021. Due to worsening shortness of breath and SpO2 of 79%, he was sent to the emergency room. Patient denied chest pain. No dizziness syncope. EKG from 02/08/2021 on my personal evaluation showed sinus left anterior fascicular block, LVH with ST-T abnormality. Subsequent EKG of from 02/09/2021 showed AFib with RVR, ventricular rate 117 beats per minute. Echocardiogram from 02/09/2021 was unremarkable and showed sinus rhythm at the time of the study. Repeat EKG on the following do showed atrial tachycardia/flutter with RVR. CT chest showed Moderate amount of airspace disease consistent with subacute COVID pneumonia; mildly aneurysmal ascending aorta; hepatic steatosis; No pulmonary emboli. TSH from 02/09/2021 was low at 0.459, however free T4 was within normal limits. Patient has received remdesivir, steroids and is requiring high-flow oxygen. On telemetry, he is in atrial fibrillation with RVR with heart rates in 120s to 130s. He is currently on oral diltiazem and metoprolol tartrate. He is also receiving low-molecular weight heparin. Reason For Visit: covid 19 pneumonia,hypoxic respiratory failure Review of Systems Review of Systems: General: Positive for fatigue Psychological: Negative for anxiety, depression Ophthalmic: negative for loss of vision ENT: Negative for epistaxis, headaches Allergy and immunology: Negative for hives, nasal congestion Hematologic and lymphatic: Negative for overt bleeding problems Endocrine: Negative for hot flashes, palpitations Respiratory: Positive for shortness of breath Cardiovascular: Negative for chest pain Gastrointestinal: Negative for abdominal pain, nausea, vomiting, hematochezia Musculoskeletal: Negative for myalgia, joint pains Neurological: Negative for weakness Dermatological: Negative for rash, skin discoloration PMFSH Past Medical History Medical History Adult hypothyroidism Benign essential hypertension DM2 (diabetes mellitus, type 2) Hyperlipidemia ÁLVARO on CPAP Surgical History Surgical History
[2021-02-13] MEDS: AMIODARONE 360 MG/D5W 200 ML 360 MG/200 ML BAG 33.33 MG IV CONT (11:14)
[2021-02-13 11:54] LABS: Glucose Point of Care 322 mg/dl (65-105)
--- NOTE | 2021-02-13 14:37 | PM.IMPN ---
Progress Note: A&P Assessment and Plan (1) Respiratory failure with hypoxia: Code(s): J96.91 - Respiratory failure, unspecified with hypoxia Status: Acute Assessment and Plan: Patient tested positive for COVID-19 which was dated on 02/05/2021. Patient was scheduled for monoclonal therapy 02/08/2021 however his oxygen level was found to be 79%. The patient was placed on 6 L per nasal cannula here at the hospital. He was started on remdesivir and Decadron day 5. Will continue remdesivir for 5 more days for total of 10 days. Decadron to continue for total 10 days Still requiring very high-flow oxygen with non-rebreather mass on top of that Received tocilizumab 02/09/2021 CRP continues to improve and today is normal CRP level Oxygen requirement continues to improve slowly, lowered it down to 5 and stayed around 91 92% will continue to titrate as tolerated Pt is on 5 liters of oxygen wants to try to go home tomorrow, does not want to be in hospital anymore (2) COVID-19: Code(s): U07.1 - COVID-19 Status: Acute Assessment and Plan: The patient was started on remdesivir and Decadron. I also ordered an albuterol inhaler and Robitussin. Patient will be on contact and droplet isolation. CTA with no PE (3) Adult hypothyroidism: Code(s): E03.9 - Hypothyroidism, unspecified Status: Chronic Assessment and Plan: Continue with home dose of levothyroxine. TSH mildly low (4) Benign essential hypertension: Code(s): I10 - Essential (primary) hypertension Status: Chronic Assessment and Plan: Continue with home dose of diltiazem. (5) Hyperlipidemia: Code(s): E78.5 - Hyperlipidemia, unspecified Status: Chronic Assessment and Plan: Continue with atorvastatin and monitor liver function (6) DM2 (diabetes mellitus, type 2): Code(s): E11.9 - Type 2 diabetes mellitus without complications Status: Chronic Assessment and Plan: Accu-Cheks AC and HS with sliding scale insulin. Add Lantus 16 units at bedtime today for hyperglycemia Lantus does adjusted for hyperglycemia Add prandial insulin coverage today (7) ÁLVARO on CPAP: Code(s): G47.33 - Obstructive sleep apnea (adult) (pediatric); Z99.89 - Dependence on other enabling machines and devices Status: Chronic Assessment and Plan: Patient uses a CPAP at home however the patient is positive for COVID continue CPAP at night (8) Atrial fibrillation with RVR: Code(s): I48.91 - Unspecified atrial fibrillation Status: Acute Assessment and Plan: Likely induced by hypoxia TSH mildly low will do full dose Lovenox IV metoprolol p.r.n. Started on Cardizem drip titrate Cardizem drip blood pressure does not tolerate was switched to amiodarone Lovenox full dose for stroke prophylaxis Pt went into fast af today given metoprolol and diltiazem watching for rate control . Subjective Date/time seen: 02/13/21 14:37 Interval history: Pt has progressed to 5 liters of oxygen unfortunately his HR went to 150s pt has history of diabetes, hypertension and hypothyroidism. No Af pt given metoprolol and diltiazem to slow heart rate. Pt is on remdesivir for COVID wants to go home tomorrow. Review of Systems Review of Systems: All systems reviewed & are unremarkable except as noted in HPI and below Exam Narrative: GENERAL: The patient is friendly wearing oxygen HEART: atrial fibrillation, without murmur, rubs, or gallops LUNGS: Coarse breath sounds bilaterally ABDOMEN: Soft, positive bowel sounds, non-tender, no organomegaly. SKIN: No rash, no excessive bruising, petechiae, or purpura. Objective Data Vital Signs Vital Signs: Vital Signs - 24 hr 02/12/21 15:00 02/12/21 15:32 02/12/21 15:38 Temperature 36.4 C L Pulse Rate 85 84 Respiratory Rate 21 H 20 Blood Pressure 105/76 Pulse Oximetry 95 93 94 02/12/21 16:00 02/12/21 17:51 02/12/21 20:
[2021-02-13 16:42] LABS: Glucose Point of Care 347 mg/dl (65-105)
[2021-02-13] MEDS: AMIODARONE 360 MG/D5W 200 ML 360 MG/200 ML BAG 16.67 MG IV CONT (16:54)
[2021-02-13 20:24] LABS: Glucose Point of Care 331 mg/dl (65-105)
[2021-02-13] MEDS: INSULIN GLARGINE (*BKC) 100 UNITS/ML 28 UNITS SUB-Q (20:49)
[2021-02-13] MEDS: REMDESIVIR 100 MG/NS 250 ML 100 MG/250 ML BAG 250 MG IVPB (21:18)
[2021-02-14] VITALS (21 sets, daily range): BP systolic 112–126; BP diastolic 75–96; PULSE 58–94; RESP 20; TEMP 36.3–36.8; O2SAT 93–97
[2021-02-14] MEDS: ALBUTEROL SULFATE (*SP) AEROSOL 1 PUFF 2 PUFF INHALATION ×4 (02:11→21:13)
[2021-02-14] MEDS: AMIODARONE 360 MG/D5W 200 ML 360 MG/200 ML BAG 16.67 MG IV CONT (04:55)
[2021-02-14 05:45] LABS: INR 1.2; Prothrombin Time 14.6 Seconds (11.1-14.7)
[2021-02-14 05:49] LABS: Alanine Aminotransferase 79 U/L (4-50)
[2021-02-14] MEDS: LEVOTHYROXINE SODIUM 112 MCG TABLET BY MOUTH (06:05)
[2021-02-14] MEDS: METOPROLOL TARTRATE 25 MG TABLET PO ×2 (06:05→21:09)
[2021-02-14 08:24] LABS: Glucose Point of Care 233 mg/dl (65-105)
[2021-02-14] MEDS: ENOXAPARIN 100 MG/ML SYRINGE SUB-Q (09:06)
[2021-02-14] MEDS: DOCUSATE SODIUM 100 MG CAPSULE PO ×2 (09:06→21:09)
[2021-02-14] MEDS: ATORVASTATIN 20 MG TABLET PO (09:06)
[2021-02-14] MEDS: polyethylene glycoL 3350 17 GM POWD.PACK PO (09:06)
[2021-02-14] MEDS: INSULIN ASPART (*BKC) 100 UNITS/ML SUB-Q ×3 (09:07→16:55)
[2021-02-14] MEDS: INSULIN ASPART (*BKC) 100 UNITS/ML 10 UNITS SUB-Q ×3 (09:07→16:56)
[2021-02-14] MEDS: FLUTICASONE PROPIONATE 0.05% NA SPR 16 GM BTL (*BKC) 2 SPRAY NASAL (09:34)
[2021-02-14 10:17] LABS: Estimated CRCL calculation 87 ml/min; Estimated Glomerular Filt Rate > 60
--- NOTE | 2021-02-14 11:20 | PM.PNCARD ---
Progress Note: A&P Assessment and Plan (1) Atrial fibrillation with RVR: Code(s): I48.91 - Unspecified atrial fibrillation Status: Acute Assessment and Plan: 60-year-old male with hypertension, type 2 diabetes mellitus, hypothyroidism on thyroxine replacement, ÁLVARO. Patient admitted to the hospital with COVID-19 pneumonia. During hospitalization, patient was found to be in atrial fibrillation with RVR. On telemetry, he is currently in AFib with RVR with heart rates in 120s to 130s. Blood pressures are low normal with episodes of hypotension. -will change his metoprolol tartrate to 25 mg p.o. b.i.d.. Discontinue his IV amiodarone and transition to oral amiodarone 200 mg p.o. b.i.d. -continue anticoagulation but will DC low molecular weight heparin but switch him to Xarelto 20 mg daily -echocardiogram performed during this hospitalization is unremarkable. -hopefully, with resolution of COVID-19 pneumonia, patient may revert back to sinus rhythm. (2) Pneumonia due to 2019 novel coronavirus: Code(s): U07.1 - COVID-19; J12.82 - Pneumonia due to coronavirus disease 2019 Status: Acute Assessment and Plan: Patient is on supplemental oxygen, has received remdesivir, and steroids. Management as per primary team. Subjective Date/time seen: 02/14/21 11:20 Interval history: 60-year-old with COVID in AFib Date of service 02/14/2021: Feels much better today. No chest pain or shortness of breath. Heart rate is better controlled Review of Systems Review of Systems: All systems reviewed & are unremarkable except as noted in HPI and below Constitutional: Constitutional: Denies weakness Eyes: Eyes: Denies blurry vision ENT: Reports Normal hearing present Cardiovascular: Cardiovascular: Denies chest pain Respiratory: Respiratory: Denies dyspnea Gastrointestinal: Gastrointestinal: Denies abdominal pain Genitourinary: Genitourinary: Denies dysuria Musculoskeletal: Musculoskeletal: Denies neck pain Integumentary/Breasts: Skin/Breast: Denies dry skin Neurologic: Denies headache(s) Psychiatric: Psychiatric: Denies anxiety Endocrine: Endocrine: Denies change in body appearance Hematologic/Lymphatic: Hematologic/Lymphatic: Denies easy bleeding Allergic/Immunologic: Allergic/Immunologic: Denies GI upset with certain foods Exam Narrative: PHYSICAL EXAMINATION: GENERAL: Alert, oriented MENTAL STATUS: affect appropriate to mood EYES: Extraocular movements intact EARS: External ears appear normal, hearing grossly normal NOSE: On supplemental oxygen MOUTH: Mucous membranes moist, tongue normal NECK: Supple, no JVD CHEST: Good respiratory effort; coarse breath sounds HEART: Normal rate, irregularly irregular rhythm ABDOMEN: Soft, nontender NEUROLOGICAL: Alert, normal speech MUSCULOSKELETAL: No major deformity, no amputation EXTREMITIES: No pedal edema, no clubbing, no cyanosis SKIN: no rash on the exposed area PSYCHIATRIC: Normal mood, appropriate affect Objective Data Vital Signs Vital Signs: Vital Signs - 24 hr 02/13/21 12:00 02/13/21 12:17 02/13/21 12:45 Temperature 36.5 C Pulse Rate 114 H 124 H Respiratory Rate 20 Blood Pressure 99/68 L Pulse Oximetry 92 95 02/13/21 14:00 02/13/21 15:20 02/13/21 16:00 Temperature Pulse Rate 81 82 83 Respiratory Rate Blood Pressure 104/72 Pulse Oximetry 02/13/21 16:45 02/13/21 16:54 02/13/21 18:00 Temperature 36.3 C L Pulse Rate 80 82 Respiratory Rate 22 H Blood Pressure 117/81 Pulse Oximetry 93 94 02/13/21 19:04 02/13/21 20:00 02/13/21 21:21 Temperature 35.9 C L Pulse Rate 80 82 82 Respiratory Rate 22 H Blood Pressure 115/72 Pulse Oximetry 94 94 02/13/21 21:44 02/13/21 22:00 02/13/21 23:39 Temperature 36.6 C Pulse Rate 79 85 Respiratory Rate 20 Blood Pressure 122/70 Pulse Oximetry 94 97 02/14/21 00:00 02/14/21 02:00 02/14/21 04:00 Temp
[2021-02-14 12:40] LABS: Glucose Point of Care 281 mg/dl (65-105)
--- NOTE | 2021-02-14 14:19 | PM.IMPN ---
Progress Note: A&P Assessment and Plan (1) Respiratory failure with hypoxia: Code(s): J96.91 - Respiratory failure, unspecified with hypoxia Status: Acute Assessment and Plan: Interval history: Patient tested positive for COVID-19 which was dated on 02/05/2021. Patient was scheduled for monoclonal therapy 02/08/2021 however his oxygen level was found to be 79%. The patient was placed on 6 L per nasal cannula here at the hospital. He was started on remdesivir and Decadron day 5. Will continue remdesivir for 5 more days for total of 10 days. Decadron to continue for total 10 days Still requiring very high-flow oxygen with non-rebreather mass on top of that Received tocilizumab 02/09/2021 CRP continues to improve and today is normal CRP level Oxygen requirement continues to improve slowly, lowered it down to 5 and stayed around 91 92% will continue to titrate as tolerated Pt given metoprolol and diltiazem drip yesterday can transition to diltiazem orally today . Pt is on remdesivir for COVID wants to go home tomorrow. Continue to wean off oxygen, pt will need home oxygen assessment tomorrow prior to DC (2) COVID-19: Code(s): U07.1 - COVID-19 Status: Acute Assessment and Plan: The patient was started on remdesivir and Decadron. I also ordered an albuterol inhaler and Robitussin. Patient will be on contact and droplet isolation. CTA with no PE (3) Adult hypothyroidism: Code(s): E03.9 - Hypothyroidism, unspecified Status: Chronic Assessment and Plan: Continue with home dose of levothyroxine. TSH mildly low (4) Benign essential hypertension: Code(s): I10 - Essential (primary) hypertension Status: Chronic Assessment and Plan: Continue with home dose of diltiazem. (5) Hyperlipidemia: Code(s): E78.5 - Hyperlipidemia, unspecified Status: Chronic Assessment and Plan: Continue with atorvastatin and monitor liver function (6) DM2 (diabetes mellitus, type 2): Code(s): E11.9 - Type 2 diabetes mellitus without complications Status: Chronic Assessment and Plan: Accu-Cheks AC and HS with sliding scale insulin. Add Lantus 16 units at bedtime today for hyperglycemia Lantus does adjusted for hyperglycemia Add prandial insulin coverage today (7) ÁLVARO on CPAP: Code(s): G47.33 - Obstructive sleep apnea (adult) (pediatric); Z99.89 - Dependence on other enabling machines and devices Status: Chronic Assessment and Plan: Patient uses a CPAP at home however the patient is positive for COVID continue CPAP at night (8) Atrial fibrillation with RVR: Code(s): I48.91 - Unspecified atrial fibrillation Status: Acute Assessment and Plan: Pt went into fast af yesterday, prior in admission also,pt given metoprolol and diltiazem drip can transition to oral diltiazem and Xarelto, Continue to watch rate today. DC tomorrow AF likely secondary to Covid infection, never had it before. Subjective Date/time seen: 02/14/21 14:19 Interval history: Pt has progressed to 2 liters of oxygen unfortunately his HR is in 120s today. pt has history of diabetes, hypertension and hypothyroidism. No Af in the past. Pt given metoprolol and diltiazem drip yesterday can transition to diltizem orally today . Pt is on remdesivir for COVID wants to go home tomorrow. continue to wean off oxygen, pt will need home oxygen assessment tomorrow prior to DC. Review of Systems Review of Systems: All systems reviewed & are unremarkable except as noted in HPI and below Exam Narrative: GENERAL: The patient is friendly wearing oxygen HEART: irreg irreg, without murmur, rubs, or gallops ABDOMEN: Soft, positive bowel sounds, non-tender, no organomegaly. SKIN: No rash, no excessive bruising, petechiae, or purpura. Objective Data Vital Signs Vital Signs: Vital Signs - 24 hr 02/13/21 15:20 02/13/21 16:00 02/13/21
[2021-02-14 16:29] LABS: Glucose Point of Care 376 mg/dl (65-105)
[2021-02-14] MEDS: RIVAROXABAN 20 MG TABLET PO (16:56)
[2021-02-14] MEDS: AMIODARONE HCL 200 MG TABLET PO (16:56)
--- NOTE | 2021-02-14 19:27 | ECG_ITS ---
Measurements Intervals Kirk Rate: 58 P: 21 CA: 184 QRS: -42 QRSD: 128 T: 35 QT: 434 QTc: 427 Interpretive Statements SINUS BRADYCARDIA LEFT AXIS DEVIATION INCOMPLETE RIGHT BUNDLE BRANCH BLOCK VOLTAGE CRITERIA FOR LVH HIGH LATERAL INFARCT, AGE INDETERMINATE T WAVE ABNORMALITY IN ANTEROLATERAL LEADS- CONSIDER ISCHEMIA BASELINE ARTIFACT- V2 ABNORMAL ECG Electronically Signed On 02-15-2021 6:47:49 BRICK OFF[employer]ARER by Óscar Carroll D.O.
[2021-02-14 20:44] LABS: Glucose Point of Care 258 mg/dl (65-105)
[2021-02-14] MEDS: REMDESIVIR 100 MG/NS 250 ML 100 MG/250 ML BAG 250 MG IVPB (21:07)
[2021-02-14] MEDS: INSULIN GLARGINE (*BKC) 100 UNITS/ML 28 UNITS SUB-Q (21:09)
[2021-02-15] VITALS (12 sets, daily range): BP systolic 123–138; BP diastolic 77–89; PULSE 44–126; RESP 16–20; TEMP 36.3–36.6; O2SAT 90–97
[2021-02-15] MEDS: ALBUTEROL SULFATE (*SP) AEROSOL 1 PUFF 2 PUFF INHALATION ×2 (03:03→08:53)
[2021-02-15 05:16] LABS: INR 1.3; Prothrombin Time 15.6 Seconds (11.1-14.7)
[2021-02-15 05:29] LABS: Alanine Aminotransferase 78 U/L (4-50); Estimated CRCL calculation 73 ml/min; Estimated Glomerular Filt Rate > 60
[2021-02-15] MEDS: LEVOTHYROXINE SODIUM 112 MCG TABLET BY MOUTH (06:11)
--- NOTE | 2021-02-15 08:32 | PCNWS ---
Weekly nutritional screen. Patient is tolerating current diet with adequate intake. No weight loss reported. No nutritional needs at this time.
[2021-02-15 08:48] LABS: Glucose Point of Care 133 mg/dl (65-105)
[2021-02-15] MEDS: INSULIN ASPART (*BKC) 100 UNITS/ML 10 UNITS SUB-Q (08:53)
[2021-02-15] MEDS: ATORVASTATIN 20 MG TABLET PO (08:54)
[2021-02-15] MEDS: AMIODARONE HCL 200 MG TABLET PO (08:54)
[2021-02-15] MEDS: FLUTICASONE PROPIONATE 0.05% NA SPR 16 GM BTL (*BKC) 2 SPRAY NASAL (08:54)
[2021-02-15] MEDS: METOPROLOL TARTRATE 25 MG TABLET PO (08:55)
--- NOTE | 2021-02-15 11:00 | PM.PNCARD ---
Progress Note: A&P Assessment and Plan (1) Atrial fibrillation with RVR: Code(s): I48.91 - Unspecified atrial fibrillation Status: Acute Assessment and Plan: 60-year-old male with hypertension, type 2 diabetes mellitus, hypothyroidism on thyroxine replacement, ÁLVARO. Patient admitted to the hospital with COVID-19 pneumonia. During hospitalization, patient was found to be in atrial fibrillation with RVR. On telemetry, he is currently in AFib with RVR with heart rates in 120s to 130s. Blood pressures are low normal with episodes of hypotension. -he was mildly bradycardic last night. Will lower his metoprolol dose down to 12.5 mg p.o. b.i.d.. Continue amiodarone 200 mg p.o. b.i.d. at least for the short term post discharge. This should not be continued long-term. -continue Xarelto 20 mg daily. Also he likely will not need long-term anticoagulation for treatment of his atrial fibrillation as the atrial fibrillation was in the setting of severe illness from COVID. -echocardiogram performed during this hospitalization is unremarkable. -hopefully, with resolution of COVID-19 pneumonia, patient may revert back to sinus rhythm. Okay for discharge from my perspective. (2) Pneumonia due to 2019 novel coronavirus: Code(s): U07.1 - COVID-19; J12.82 - Pneumonia due to coronavirus disease 2019 Status: Acute Assessment and Plan: Patient is on supplemental oxygen, has received remdesivir, and steroids. Management as per primary team. Subjective Date/time seen: 02/15/21 11:00 Interval history: 60-year-old with COVID in AFib Date of service 02/14/2021: Feels much better today. No chest pain or shortness of breath. Heart rate is better controlled Date of service 02/15/2021: Converted to sinus rhythm overnight. Feels good. No chest pain or shortness breath. Wants to go home. Review of Systems Review of Systems: All systems reviewed & are unremarkable except as noted in HPI and below Constitutional: Constitutional: Denies headache(s) and Denies weakness Eyes: Eyes: Denies blurry vision ENT: Reports Normal hearing present, Denies headache(s) and Denies neck pain Cardiovascular: Cardiovascular: Denies chest pain and Denies dyspnea Respiratory: Respiratory: Denies dyspnea Gastrointestinal: Gastrointestinal: Denies abdominal pain Genitourinary: Genitourinary: Denies dysuria Musculoskeletal: Musculoskeletal: Denies neck pain Integumentary/Breasts: Skin/Breast: Denies dry skin Neurologic: Reports Normal hearing present, Denies headache(s) and Denies weakness Psychiatric: Psychiatric: Denies anxiety Endocrine: Endocrine: Denies change in body appearance Hematologic/Lymphatic: Hematologic/Lymphatic: Denies easy bleeding Allergic/Immunologic: Allergic/Immunologic: Denies GI upset with certain foods Exam Narrative: PHYSICAL EXAMINATION: GENERAL: Alert, oriented MENTAL STATUS: affect appropriate to mood EYES: Extraocular movements intact EARS: External ears appear normal, hearing grossly normal NOSE: On supplemental oxygen MOUTH: Mucous membranes moist, tongue normal NECK: Supple, no JVD CHEST: Good respiratory effort; coarse breath sounds HEART: Normal rate, irregularly irregular rhythm ABDOMEN: Soft, nontender NEUROLOGICAL: Alert, normal speech MUSCULOSKELETAL: No major deformity, no amputation EXTREMITIES: No pedal edema, no clubbing, no cyanosis SKIN: no rash on the exposed area PSYCHIATRIC: Normal mood, appropriate affect Objective Data Vital Signs Vital Signs: Vital Signs - 24 hr 02/14/21 12:00 02/14/21 12:46 02/14/21 14:00 Temperature 36.8 C Pulse Rate 86 68 94 Respiratory Rate 20 Blood Pressure 126/81 Pulse Oximetry 96 02/14/21 16:00 02/14/21 16:19 02/14/21 16:56 Temperature 36.6 C Pulse Rate 89 89 89 Respiratory Rate 20 Blood Pressure 122/96 H Pulse Oximetry 94 02/14/21 18:00 02/14/21 20:00 02/14/21 21:09 Tempera
--- NOTE | 2021-02-15 12:00 | HOMEO2EVAL ---
Evaluation was performed at [facility] Home Oxygen Evaluation RC: Home Oxygen (O2) Evaluation Start: 02/15/21 10:19 Freq: ONCE Status: Active Protocol: RPE Activity Type Activity Date Activity User E-Sign Co-Sign Detail Recorded Client Recorded Date Recorded By Document 02/15/21 11:15 [email or web address] [email or web address] 02/15/21 12:00 LESLI Document 02/15/21 11:17 LESLI [email or web address] 02/15/21 12:00 LESLI Document 02/15/21 11:25 LESLI [email or web address] 02/15/21 12:00 LESLI 02/15/21 12 12 11:15 11:17 11:25 Home O2 Evaluation Test Phase Resting Exercise Resting Oxygen Delivery Room Air Room Air Room Air Pulse Oximetry (90-100 %) 93 90 93 Pulse Rate (60-100 beats/min) 101 H 126 H 96 Home Oxygen Evaluation Comments No home O2 needed. Treatment Charges O2 Evaluation - Inpatient RC: Home Oxygen (O2) Evaluation Start: 02/15/21 11:03 Freq: ONCE Status: Active Protocol: RPE Activity Type Activity Date Activity User E-Sign Co-Sign Detail Recorded Client Recorded Date Recorded By Document 02/15/21 11:15 [email or web address] [email or web address] 02/15/21 12:00 LESLI 02/15/21 11:15 Home O2 Evaluation Test Phase Resting Oxygen Delivery Room Air Pulse Oximetry (90-100 %) 93 Pulse Rate (60-100 beats/min) 101 H Treatment Charges O2 Evaluation - Inpatient
--- NOTE | 2021-02-15 12:00 | PCRCNOTE ---
Home o2 eval done, no home O2 needed. RN notified
--- NOTE | 2021-02-15 20:02 | PM.DS ---
DS: Admitting Diagnosis Discharge Date 02/15/21 Admitting Diagnosis (1) Respiratory failure with hypoxia: (2) COVID-19: (3) Adult hypothyroidism: (4) Benign essential hypertension: (5) Hyperlipidemia: (6) DM2 (diabetes mellitus, type 2): (7) ÁLVARO on CPAP: DS: Discharge Diagnosis Discharge Diagnosis (1) Respiratory failure with hypoxia: Code(s): J96.91 - Respiratory failure, unspecified with hypoxia Status: Acute Assessment and Plan: Interval history: Patient tested positive for COVID-19 which was dated on 02/05/2021. Patient was scheduled for monoclonal therapy 02/08/2021 however his oxygen level was found to be 79%. The patient was placed on 6 L per nasal cannula here at the hospital. He was started on remdesivir and Decadron day 5. Will continue remdesivir for 5 more days for total of 10 days. Decadron to continue for total 10 days Still requiring very high-flow oxygen with non-rebreather mass on top of that Received tocilizumab 02/09/2021 CRP continues to improve and today is normal CRP level Oxygen requirement continues to improve slowly, lowered it down to 5 and stayed around 91 92% will continue to titrate as tolerated Pt given metoprolol and diltiazem drip yesterday can transition to diltiazem orally today . Patient was appropriately treated with remdesivir for COVID. Home oxygen evaluation was performed. No oxygen needs. (2) COVID-19: Code(s): U07.1 - COVID-19 Status: Acute Assessment and Plan: The patient was started on remdesivir and Decadron. I also ordered an albuterol inhaler and Robitussin. Patient will be on contact and droplet isolation. CTA with no PE Patient was stable for discharge and sent home. (3) Adult hypothyroidism: Code(s): E03.9 - Hypothyroidism, unspecified Status: Chronic Assessment and Plan: Continue with home dose of levothyroxine. TSH mildly low (4) Benign essential hypertension: Code(s): I10 - Essential (primary) hypertension Status: Chronic Assessment and Plan: Continue with home dose of diltiazem. (5) Hyperlipidemia: Code(s): E78.5 - Hyperlipidemia, unspecified Status: Chronic Assessment and Plan: Continue with atorvastatin and monitor liver function (6) DM2 (diabetes mellitus, type 2): Code(s): E11.9 - Type 2 diabetes mellitus without complications Status: Chronic Assessment and Plan: Accu-Cheks AC and HS with sliding scale insulin. Add Lantus 16 units at bedtime today for hyperglycemia Lantus does adjusted for hyperglycemia Add prandial insulin coverage today (7) ÁLVARO on CPAP: Code(s): G47.33 - Obstructive sleep apnea (adult) (pediatric); Z99.89 - Dependence on other enabling machines and devices Status: Chronic Assessment and Plan: Patient uses a CPAP at home however the patient is positive for COVID continue CPAP at night (8) Atrial fibrillation with RVR: Code(s): I48.91 - Unspecified atrial fibrillation Status: Acute Assessment and Plan: Pt went into fast af yesterday, prior in admission also,pt given metoprolol and diltiazem drip can transition to oral diltiazem and Xarelto, Continue to watch rate today. DC tomorrow AF likely secondary to Covid infection, never had it before. DS: Summary Hospital Course Reason for hospitalization: Shortness of breath. Hospital Course: This is a 60 year old male patient who has diabetes, hypertension and hypothyroidism. The patient came to the emergency room because he was short of breath. He did test positive for COVID on February 06. The patient tested on February 03 but did not get his results until the . The patient was supposed to receive monoclonal therapy today however his O2 saturations were found to be 97%. Instead of receiving the transfusion he was sent to the emergency room. The patient only received 1 Moderna vaccine approximately 2-3 weeks ago.
== END 2021-02-15 14:04 | disposition home or self-care (01) | DRG 177 ==
LOC: ANHED 13:38 → ANH3MEDSUR 15:04 → ANHIMU 17:46
PROVIDERS: Internal Medicine; Nurse Practitioner; Admitting Provider Internal Medicine; Emergency Provider Emergency Medicine; PCP Internal Medicine; Visit Provider Internal Medicine
DX: U07.1 COVID-19 (principal); J96.01 Acute respiratory failure with hypoxia; J12.82 Pneumonia due to coronavirus disease 2019; I48.91 Unspecified atrial fibrillation; E03.9 Hypothyroidism, unspecified; I10 Essential (primary) hypertension; E78.5 Hyperlipidemia, unspecified; E11.9 Type 2 diabetes mellitus without complications; G47.33 Obstructive sleep apnea (adult) (pediatric); Z96.641 Presence of right artificial hip joint; Z90.49 Acquired absence of other specified parts of digestive tract
CPT/HCPCS: 36415; 71045; 71275; 80048; 80053; 82565; 82728; 82948; 83605; 83615; 83690; 83735; 84439; 84443; 84460; 84480; 84484; 85025; 85380; 85610; 85730; 86140; 87040; 87804; 93005; 93306; 94618; 94640; 96374; 97110; 97116; 97162; 97165; 97535; 99212; 99291; A9270; C9803; G0463; J0282; J1100; J1650; J1815; J1940; Q0249; Q9967; U0003; U0005

== ENCOUNTER → 2021-11-09 14:42 | Outpatient (CLI) | payer OTHER, SELFPAY ==
--- NOTE | ~2021-11-09 | CT_ITS ---
EXAMINATION: CTA chest DATE: 11/09/2021 15:19 INDICATION: Aortic root enlargement TECHNIQUE: Computed tomographic angiography (CTA) of the chest was performed without and with 100 mL Omnipaque-350 intravenous contrast. Volume-rendered 3D-reconstructions of the aorta and large arterie s were constructed by the technologist on a separate workstation. Automated exposure control and iter ative reconstruction technique were employed. The dose-length product was 903.14 mGy-cm. COMPARISON: 02/08/2021 FINDINGS: Marked interval improvement in the previously seen peripheral and lower lung predominant lung disease with prior appearance most consistent with COVID pneumonia and no with likely minimal residual scarr ing. No pulmonary edema, pleural effusion or pneumothorax. Heart size is normal. Atherosclerotic manjinder nary artery calcific lesion. No pericardial effusion. Ascending thoracic aorta measuring up to 4.4 x 4.3 cm maximal dimensions measured orthogonal to the axis of flow on the coronal and sagittal images respectively. Aortic tapers to normal caliber at the aortic arch with normal caliber descending thora cic aorta. No dissection. Normal variant bovine aortic arch with common origin of the innominate and left common carotid arteries. No pathologically enlarged thoracic lymphadenopathy. Diffuse hepatic st eatosis. Mild to moderate thoracic spondylosis. IMPRESSION: 1. 4.4 cm ascending thoracic aortic aneurysm. 2. Minimal residual peripheral scarring in both lungs at the sites of prior significantly more promin ent lung disease which was likely related to COVID pneumonia. 3. Diffuse hepatic steatosis. Reviewed, dictated and finalized at location A. IMPRESSION: 1. 4.4 cm ascending thoracic aortic aneurysm. 2. Minimal residual peripheral scarring in both lungs at the sites of prior sig nificantly more prominent lung disease which was likely related to COVID pneumo wild. 3. Diffuse hepatic steatosis.
[2021-11-09 15:06] LABS: Estimated Glomerular Filt Rate > 60
== END ==
PROVIDERS: PCP Internal Medicine; Visit Provider Internal Medicine Cardiovascular Disease
DX: I77.89 Other specified disorders of arteries and arterioles (principal); I71.2 Thoracic aortic aneurysm, without rupture; R91.8 Other nonspecific abnormal finding of lung field; K76.0 Fatty (change of) liver, not elsewhere classified
CPT/HCPCS: 71275; Q9967

== ENCOUNTER 2023-02-24 00:13 | Day surgery (SDC) | payer OTHER, SELFPAY ==
[2023-02-07 08:11] VITALS: BMI 39.5
--- NOTE | 2023-02-21 09:02 | SUR.PREOP ---
Patient called regarding upcoming procedure. Reviewed preop instructions, appointment times, and procedure prep.
[2023-02-24 06:59] VITALS: BP 123/82; PULSE 57; RESP 20; TEMP 36.3; O2SAT 98; BMI 37.0
[2023-02-24] MEDS: LACTATED RINGERS 1,000 ML 150 ML IV CONT (07:01)
[2023-02-24 07:14] LABS: Glucose Point of Care 135 mg/dl (65-105)
--- NOTE | 2023-02-24 07:24 | PM.HPGS ---
History of Present Illness History of Present Illness Consent: Risks, benefits, and alternatives have been discussed and questions answered. Patient agrees to proceed with procedure. Chief complaint: neoplam screening Narrative: Hal Bolivar is a 62 year old male Presents for screening colonoscopy. Patient's current weight appetite and bowel movements are normal. Patient denies abdominal pain family history noncontributory. Previous colonoscopy 10 years ago was unremarkable. Review of Systems Review of Systems: Review of systems noncontributory. FORMERLY [facility], [facility] Past Medical History Medical History Adult hypothyroidism Benign essential hypertension DM2 (diabetes mellitus, type 2) Hyperlipidemia ÁLVARO on CPAP Surgical History Surgical History H/O elbow surgery History of appendectomy History of right hip replacement January 2020 Family History Family History Father Family history of diabetes mellitus in first degree relative Diabetes mellitus, Onset Age: 73 Mother Diabetes mellitus Social History Social History Social History: The patient lives with his . He has 2 children. He works for waste management. His is the durable power insurance defense attorney. The patient is a lifelong nonsmoker. He does not use any alcohol marijuana or illicit drugs. Code status full code Smoking status: Never smoker Second hand tobacco smoke exposure: No Alcohol intake: never Substance use: never Substance use type: does not use Lack of Transportation: No Lack of Food: Never True Current Housing: I Have Housing Concerned About Future Housing: No Difficulty Paying Gas/Electric Bills: No Difficulty Paying for Meds: No Currently Unemployed: No Education: High School Diploma/GED Living arrangements: with family Spiritual care concerns: No Meds Home Medications and Allergies Home Medications Medication Instructions Recorded Confirmed Type diphenhydramine 25 1 tablet PO QHS PRN Pain 12/18/20 02/07/23 History mg-acetaminophen 500 mg tablet (Tylenol PM Extra Strength) metoprolol tartrate 25 mg tablet 12.5 mg PO BID 30 days #60 tabs 02/15/21 02/07/23 Rx atorvastatin 20 mg tablet 40 mg PO DAILY 10/31/21 02/07/23 History niacin 500 mg tablet 500 mg PO DAILY 10/10/22 02/07/23 History fluticasone propionate 50 See Rx Instructions .Route 01/13/23 02/07/23 Rx mcg/actuation nasal .COMPLEX #16 grams spray,suspension candesartan 32 See Rx Instructions .Route 02/03/23 02/07/23 Rx mg-hydrochlorothiazide 12.5 mg .COMPLEX #90 tabs tablet dapagliflozin propanediol 10 mg See Rx Instructions .Route 02/03/23 02/07/23 Rx tablet (Farxiga) .COMPLEX #90 tabs diltiazem HCl 360 mg See Rx Instructions .Route 02/03/23 02/07/23 Rx capsule,extended release 24 hr .COMPLEX #90 caps levothyroxine 112 mcg tablet See Rx Instructions .Route 02/03/23 02/07/23 Rx (Euthyrox) .COMPLEX #90 tabs sitagliptin phosphate 50 See Rx Instructions .Route 02/03/23 02/07/23 Rx mg-metformin 1,000 mg tablet .COMPLEX #180 tabs (Janumet) dulaglutide 3 mg/0.5 mL See Rx Instructions .Route 02/04/23 02/07/23 Rx subcutaneous pen injector .COMPLEX #4 mL (Trulicity) aspirin 81 mg tablet,delayed 81 mg PO DAILY 02/07/23 02/07/23 History release niacin 100 mg tablet 100 mg PO DAILY 02/07/23 02/07/23 History omega-3 fatty acids 1 cap PO DAILY 02/07/23 02/07/23 History sodium,potassium,mag sulfates 17.5 See Rx Instructions .Route 02/07/23 Rx gram-3.13 gram-1.6 gram oral soln .COMPLEX #354 mL (Suprep Bowel Prep Kit) Allergies Allergy/AdvReac Type Severity Reaction Status Date / Time No Known Allergies Allergy Mild Verified 02/24/23 06:56 Vital Signs Vital Si
--- NOTE | 2023-02-24 07:30 | WPDANESEPPF ---
Anes - Initial Pre Proc Eval Procedure: Operation Date: 02/24/23 08:00 Proposed Procedures p Screening Colonoscopy - Byron Lan MD Date/Time: 02/24/23 07:30 Surgeon: Byron Lan MD Pre Op Diagnosis: neoplam screening Patient Data Age: 62 Gender: M Height: 1.78 m Weight: 117.2 kg Last Vital Signs Temp 36.3 C L 02/24/23 06:59 Pulse 57 L 02/24/23 06:59 Resp 20 02/24/23 06:59 BP 123/82 02/24/23 06:59 Pulse Ox 98 02/24/23 06:59 O2 Del Method Room Air 02/24/23 06:59 Allergies Allergy/AdvReac Type Severity Reaction Status Date / Time No Known Allergies Allergy Mild Verified 02/24/23 06:56 Home Medications Medication Instructions Recorded Confirmed Type diphenhydramine 25 1 tablet PO QHS PRN Pain 12/18/20 02/07/23 History mg-acetaminophen 500 mg tablet (Tylenol PM Extra Strength) metoprolol tartrate 25 mg tablet 12.5 mg PO BID 30 days #60 tabs 02/15/21 02/07/23 Rx atorvastatin 20 mg tablet 40 mg PO DAILY 10/31/21 02/07/23 History niacin 500 mg tablet 500 mg PO DAILY 10/10/22 02/07/23 History fluticasone propionate 50 See Rx Instructions .Route 01/13/23 02/07/23 Rx mcg/actuation nasal .COMPLEX #16 grams spray,suspension candesartan 32 See Rx Instructions .Route 02/03/23 02/07/23 Rx mg-hydrochlorothiazide 12.5 mg .COMPLEX #90 tabs tablet dapagliflozin propanediol 10 mg See Rx Instructions .Route 02/03/23 02/07/23 Rx tablet (Farxiga) .COMPLEX #90 tabs diltiazem HCl 360 mg See Rx Instructions .Route 02/03/23 02/07/23 Rx capsule,extended release 24 hr .COMPLEX #90 caps levothyroxine 112 mcg tablet See Rx Instructions .Route 02/03/23 02/07/23 Rx (Euthyrox) .COMPLEX #90 tabs sitagliptin phosphate 50 See Rx Instructions .Route 02/03/23 02/07/23 Rx mg-metformin 1,000 mg tablet .COMPLEX #180 tabs (Janumet) dulaglutide 3 mg/0.5 mL See Rx Instructions .Route 02/04/23 02/07/23 Rx subcutaneous pen injector .COMPLEX #4 mL (Trulicity) aspirin 81 mg tablet,delayed 81 mg PO DAILY 02/07/23 02/07/23 History release niacin 100 mg tablet 100 mg PO DAILY 02/07/23 02/07/23 History omega-3 fatty acids 1 cap PO DAILY 02/07/23 02/07/23 History sodium,potassium,mag sulfates 17.5 See Rx Instructions .Route 02/07/23 Rx gram-3.13 gram-1.6 gram oral soln .COMPLEX #354 mL (Suprep Bowel Prep Kit) Laboratory Tests 02/24/23 07:10 POC Capillary Glucose 135 H mg/dl (65-105) Patient hx anesthesia problems: none Family hx anesthesia problems: none Results Review: All pre-operative results and documents have been reviewed as part of the pre-operative evaluation. [facility] Past Medical History Medical History Adult hypothyroidism Benign essential hypertension DM2 (diabetes mellitus, type 2) Hyperlipidemia ÁLVARO on CPAP Surgical History Surgical History H/O elbow surgery History of appendectomy History of right hip replacement January 2020 Family History Family History Father Family history of diabetes mellitus in first degree relative Diabetes mellitus, Onset Age: 73 Mother Diabetes mellitus Social History Social History Social History: The patient lives with his . He has 2 children. He works for waste management. His is the durable power associate attorney. The patient is a lifelong nonsmoker. He does not use any alcohol marijuana or illicit drugs. Code status full code Smoking status: Never smoker Second hand tobacco smoke exposure: No Alcohol intake: never Substance use: never Substance use type: does not use Lack of Transportation: No Lack of Food: Never True Current Housing: I Have Housing Concerned About Future Housing: No Difficulty Paying Gas/Electric Bills: No Di
[2023-02-24 08:12] VITALS: BP 94/59; PULSE 66; RESP 14; O2SAT 95
[2023-02-24 08:22] VITALS: BP 100/59; PULSE 57; RESP 20; O2SAT 96
[2023-02-24 08:32] VITALS: BP 112/66; PULSE 51; RESP 16; O2SAT 98
== END 2023-02-24 08:46 | disposition home or self-care (01) ==
PROVIDERS: PCP Family Medicine; Visit Provider Internal Medicine Gastroenterology
PROC: 0DJD8ZZ Inspection of Lower Intestinal Tract, Via Natural or Artificial Opening Endoscopic (ICD-10-PCS; CPT 45378; principal; 2023-02-24 08:00)
DX: Z12.11 Encounter for screening for malignant neoplasm of colon (principal); K63.5 Polyp of colon; K64.8 Other hemorrhoids; I10 Essential (primary) hypertension; E11.9 Type 2 diabetes mellitus without complications; E78.5 Hyperlipidemia, unspecified; G47.33 Obstructive sleep apnea (adult) (pediatric); E03.9 Hypothyroidism, unspecified; Z79.84 Long term (current) use of oral hypoglycemic drugs; Z79.85 Long-term (current) use of injectable non-insulin antidiabetic drugs; Z79.82 Long term (current) use of aspirin; E66.9 Obesity, unspecified; Z68.37 Body mass index [BMI] 37.0-37.9, adult
CPT/HCPCS: 45385; 82948; 88305; J2704; J7120